=== PATIENT | female | born 1950 | race Caucasian/White ===

== ENCOUNTER → 2016-12-19 | Outpatient (CLI) | payer MEDICARE ==
--- NOTE | 2016-12-19 16:17 | REP ---
Clinical: Nonspecific left renal density. Comparison: 12/24/2015. Technique: Axial contrast enhanced images from the lung bases to the pubic symphysis using oral and 100 ml Isovue 370 intravenous contrast material in the corticomedullary phase of renal enhancement along with precontrast, arterial phase, and delayed phase images of the abdomen. Coronal and sagittal re-formations obtained. Findings: The right kidney demonstrates chronic atrophy with evidence for enhancement suggesting some element of renal function, and no evidence for cyst, nephrolithiasis, hydroureteronephrosis or mass lesion. The left kidney is normal in all phases of enhancement and includes 5 mm upper pole simple cyst without hydroureternephrosis, nephrolithiasis, or renal mass lesion. Liver, spleen, pancreas, gallbladder, and bilateral adrenal glands are normal. The enteric system is without obstruction or acute inflammatory process. Sigmoid diverticula noted without acute diverticulitis. Pelvis demonstrates normal bladder and age-appropriate uterus/adnexa uterine fibroid suggested. Calcifications in the pelvis compatible with phleboliths. No ascites. No free air. No intraperitoneal or retroperitoneal adenopathy. Atherosclerotic changes of the aorta and vasculature without aneurysm or dissection. Musculoskeletal structures without focal osseous abnormality. Lung bases are clear. Large gastric hiatal hernia again noted. Impression: 1. Atrophic right kidney with essentially normal left kidney demonstrating 5 mm simple upper pole cyst. 2. Sigmoid diverticula without acute diverticulitis. 3. Large gastric hiatal hernia. Signed by Judd Hernandez MD 12/19/2016 04:09 P
== END ==
LOC: M RAD 14:13
PROVIDERS: ATTEND Family Medicine
DX: N26.1 Atrophy of kidney (terminal) (principal); N28.1 Cyst of kidney, acquired

== ENCOUNTER → 2018-05-06 | Outpatient (REF) | payer MEDICARE ==
[2018-05-06 18:38] LABS: BASO # 0.1 10^3/uL (0.0-0.2); BASO % 1.1 % (0.0-1.0); EOS # 0.1 10^3/uL (0.0-0.50); EOS % 1.4 % (0.0-3.0); HEMATOCRIT 44.7 % (36.0-47.0); HEMOGLOBIN 14.6 g/dl (12.0-15.5); IMMATURE GRANULOCYTE % 0.3 % (0-3.0); LYMPH # 1.7 10^3/uL (1.5-4.5); LYMPH % 27.2 % (24.0-44.0); MEAN CORPUSCULAR HEMOGLOBIN 29.4 pg (27.0-33.0); MEAN CORPUSCULAR HGB CONC 32.7 g/dl (32.0-36.5); MEAN CORPUSCULAR VOLUME 89.9 fl (80.0-96.0); MONO # 0.5 10^3/uL (0.0-0.8); MONO % 7.5 % (0.0-5.0); NEUTROPHILS # 3.9 10^3/uL (1.8-7.7); NEUTROPHILS % 62.5 % (36.0-66.0); PLATELET COUNT, AUTOMATED 184 10^3/uL (150-450); RED BLOOD COUNT 4.97 10^6/uL (4.00-5.40); RED CELL DISTRIBUTION WIDTH 13.8 % (11.5-14.5); WHITE BLOOD COUNT 6.2 10^3/uL (4.0-10.0)
[2018-05-06 18:54] LABS: ANION GAP 8 MEQ/L (8-16); BLOOD UREA NITROGEN 13 MG/DL (7-18); CALCIUM LEVEL 9.4 MG/DL (8.8-10.2); CARBON DIOXIDE LEVEL 24 MEQ/L (21-32); CHLORIDE LEVEL 109 MEQ/L (98-107); CPK CREATINE PHOSPHOKINASE 93 U/L (26-192); CREATININE FOR GFR 0.85 MG/DL (0.55-1.30); GLOMERULAR FILTRATION RATE > 60.0 (>45); GLUCOSE, FASTING 100 MG/DL (70-100); POTASSIUM SERUM 4.3 MEQ/L (3.5-5.1); SODIUM LEVEL 141 MEQ/L (136-145)
== END ==
LOC: M LAB REF 16:59
DX: K92.1 Melena (principal); M60.9 Myositis, unspecified; I10 Essential (primary) hypertension
CPT/HCPCS: 82550

== ENCOUNTER → 2020-08-30 | Outpatient (CLI) | payer SELFPAY | LOC: M LABSMTC 13:57 | PROVIDERS: ATTEND Pediatrics | DX: Z20.822 Contact with and (suspected) exposure to COVID-19 (principal) ==

== ENCOUNTER → 2021-03-04 | Outpatient (CLI) | payer MEDICARE ==
[~2021-03-04] MED LIST: COQ150CH PO; CVS1CAP2 PO; D31000TA2 PO; FERR325T81 PO; LISI20TA33 PO; OMEP-218 PO; VITMTA PO
== END ==
LOC: M LABSMTC 10:49
PROVIDERS: ATTEND Anesthesiology
DX: Z01.812 Encounter for preprocedural laboratory examination (principal)

== ENCOUNTER → 2021-06-03 | Outpatient (CLI) | payer MEDICARE | LOC: M LABSMTC 09:19 | PROVIDERS: ATTEND Anesthesiology | DX: Z01.812 Encounter for preprocedural laboratory examination (principal); Z20.822 Contact with and (suspected) exposure to COVID-19 ==

== ENCOUNTER 2021-06-08 06:42 | Day surgery (SDC) | payer MEDICARE ==
[~2021-06-08] VITALS: Ht 162.6 cm; Wt 105.7 kg
[~2021-06-08 06:42] MED LIST changes: +NS 1,000 ML IV ONE
--- OUTSIDE RECORDS SUMMARY | 2021-06-08 06:47 | CCD ---
Author Author Mayuri Metzger DO Organization Mayuri Metzger DO Address [address] [address] [place], [place] [id number] Care Team Providers Care Director Communications Name Role Phone Domenica BRAUN MA, Moe Mcdowell Unavailable Mayuri Metzger DO Unavailable Mayuri Metzger DO PCP ENCOUNTERS Encounter Performer Loca tion Date Esophageal hiatal hernia [SNOMED-CT: 62913553] Dr. Mayuri Metzger DO 05-25-2021 Leiomyoma [SNOMED-CT: 523506825150838] Dr. Mayuri Metzger DO 05-25-2021 Other hyperlipidemia [ICD10: E78.49] Dr. Mayuri Metzger DO 11-09-2020 Feces: polyps present [SNOMED-CT: 580116850] Dr. Mayuri Metzger DO 10-04-2020 Other hyperlipidemia [ICD10: E78.49] Dr. Mayuri Metzger DO 10-04-2020 UNSPECIFIED ESSENTIAL HYPERTENSION [SNOMED-CT: 9924535 0] N/A N/A 10-04-2020 REFLUX ESOPHAGITIS [SNOMED-CT: 71225011] Dr. Mayuri Metzger DO 10-04-2020 Malaise and fatigue [SNOMED-CT: 505843759] Dr. Mayuri Metzger DO 10-04-2020 Breast screening, unspecified [ICD10: Z12.39] Dr. Mayuri Metzger DO 10-04-2020 Upper respiratory infection [SNOMED-CT: 99495839] Dr. Mayuri Metzger, DO 08-27-2020 Viral illness [SNOMED-CT: 22711471] Dr. Mayuri Metzger, DO 08-27-2020 Other hyperlipidemia [ICD10: E78.49] Dr. Mayuri Metzger, DO 04-30-2020 Morbid obesity [SNOMED-CT: 262212906] Dr. Mayuri Metzger, DO 04-30-2020 REFLUX ESOPHAGITIS [SNOMED-CT: 87186429] Dr. Mayuri Metzger, DO 10-03-2019 Other hyperlipidemia [ICD10: E78.49] Dr. Mayuri Metzger, DO 10-03-2019 Hyperglycemia [SNOMED-CT: 73246514] Dr. Mayuri Metzger, DO 10-03-2019 Breast screening, unspecified [ICD10: Z12.39] Dr. Mayuri Metzger, DO 10-03-2019 UNSPECIFIED ESSENTIAL HYPERTENSION [SNOMED-CT: 2459849 0] N/A N/A 09-25-2018 REFLUX ESOPHAGITIS [SNOMED-CT: 58860049] Dr. Mayuri Metzger, DO 09-25-2018 Myositis [SNOMED-CT: 13208301] Dr. Parth Metzger, DO 09-25-2018 Other specified vaccination [ICD10: Z23] Moe Metzger, DO 09-25-2018 Hematochezia [SNOMED-CT: 527999495] Dr. Mayuri Metzger, DO 05-06-2018 Myositis [SNOMED-CT: 61211660] Dr. Parth Metzger, DO 05-06-2018 Exogenous hyperlipidemia [SNOMED-CT: 989289349] Dr. Mayuri Metzger, DO 05-06-2018 UNSPECIFIED ESSENTIAL HYPERTENSION [SNOMED-CT: 1510586 0] N/A N/A 05-06-2018 Acute bronchitis [SNOMED-CT: 40459792] Dr. Mayuri Metzger, DO 10-31-2017 Other conjunctivitis [ICD10: H10.89] Dr. Mayuri Metzger, DO 10-31-2017 Anemia [SNOMED-CT: 643999616] Moe Metzger, DO 08-22-2017 Exogenous hyperlipidemia [SNOMED-CT: 031611922] Dr. Mayuri Metzger, DO 08-22-2017 UNSPECIFIED ESSENTIAL HYPERTENSION [SNOMED-CT: 3472196 0] N/A N/A 08-22-2017 Other specified vaccination [ICD10: Z23] Moe Metzger, DO 08-22-2017 Near syncope [SNOMED-CT: 290656062] Dr. Mayuri Metzger, DO 01-03-2017 Nausea [SNOMED-CT: 909122693] Dr. Elyse Metzger, DO 01-03-2017 Asthmatic bronchitis [SNOMED-CT: 308697466] Dr. Mayuri Metzger, DO 12-06-2016 Cough [SNOMED-CT: 61843875] Dr. Chad Metzger, DO 12-06-2016 Viral bronchitis [SNOMED-CT: 81127871] Dr. Mayuri Metzger, DO 12-06-2016 Unilateral renal atrophy [SNOMED-CT: 097030629] Dr. Mayuri Metzger, DO 07-21-2016 Exogenous hyperlipidemia [SNOMED-CT: 077908241] Dr. Mayuri Metzger, DO 07-21-2016 Tick bite [SNOMED-CT: 37153121] Dr. Mayuri Metzger, DO 05-29-2016 Acute dermatitis [SNOMED-CT: 60804867] Dr. Mayuri Metzger, DO 05-29-2016 Abdominal bloating [SNOMED-CT: 339976551] Dr. Mayuri Metzger, DO 12-29-2015 Abdominal pain [SNOMED-CT: 12517535] Dr. Mayuri Metzger, DO 12-29-2015 Atrophy of kidney [SNOMED-CT: 724464574] Dr. Mayuri Metzger, DO 12-29-2015 Abdominal bloating [SNOMED-CT: 108407228] Dr. Mayuri Metzger, DO 12-17-2015 Abdominal pain [SNOMED-CT: 73447796] Dr. Mayuri Metzger, DO 12-17-2015 UNSPECIFIED ESSENTIAL HYPERTENSION [SNOMED-CT: 3746079 0] N/A N/A 07-21-2015 REFLUX ESOPHAGITIS [SNOMED-CT: 77074644] Dr. Mayuri Metzger, DO 07-21-2015 Exogenous hyperlipidemia [SNOMED-CT: 711682430] Dr. Mayuri Metzger, DO 07-21-2015 Erythema chronica migrans [SNOMED-CT: 65910852] Moe Metzger, DO 02-03-2015 ROUTINE GENERAL MEDICAL EXAMINATION AT A HEALTH CARE FACILITY [SNOMED-CT: 643974776] Moe Metzger, DO 06-15-2014 NEED FOR PROPHYLACTIC VACCINATION AND IN OCULATION AGAINST INFLUENZA [SNOMED-CT: 885039933] Moe Metzger, DO 06-15-2014 ROUTINE GENERAL MEDICAL EXAMINATION AT A HEALTH CARE FACILITY [SNOMED-CT: 537814024] Moe Metzger, DO 03-17-2013 UNSPECIFIED ESSENTIAL HYPERTENSION [SNOMED-CT: 9214048 0] N/A N/A 01-15-2012 FAMILY HISTORY OF MALIGNANT NEOPLASM OF OTHER [SNOMED-CT: 652102449] N/A N/A 01-15-2012 ROUTINE GENERAL MEDICAL EXAMINATION AT A HEALTH CARE FACILITY [SNOMED-CT: 957836249] Moe Metzger, DO 01-15-2012 UNSPECIFIED ESSENTIAL HYPERTENSION [SNOMED-CT: 2788975 0] N/A N/A 01-27-2009 SYMPTOMATIC MENOPAUSAL OR FEMALE CLIMACT REGINO STATE [SNOMED-CT: 720929257] N/A N/A 01-27-2009 FAMILY HISTORY OF MALIGNANT NEOPLASM OF OTHER [SNOMED-CT: 683346825] N/A N/A 01-27-2009 ALLERGIES AND ADVERSE REACTIONS Substance Reaction Sever ity Status No Known Drug Allergies (RxNorm: Unknown) -- -- Active FUNCTIONAL STATUS There is no cognitive and functional status saved for this patient. IMMUNIZATIONS Vaccine Date Status FLUAD Quadrivalent (205) 06/07/2020 1 0:08:37 AM Completed Shingrix (187) 10/21/2019 11:56:22 AM Completed Fluarix (140) 10/21/2019 11:55:58 AM Completed Flucelvax Quadrivalent (171) 09/25/19 19 10:14:59 AM Completed Flucelvax, quadrivalent, preservative free (171) 08/22/2017 12:15:46 PM Completed Zoster Live (121) 07/19/2016 2:03:51 PM Completed Fluzone (141) 05/16/2016 12:29:36 PM Completed Fluvirin (141) 06/15/2014 9:02:12 AM Completed MEDICAL EQUIPMENT Patient has no history of implanted devices. MEDICATIONS Medication Generic Name Instructions Dosage Start Date Status omeprazole 20 mg oral delayed release ca psule, [RxNorm: 372931] omeprazole one po daily prn gerd 90 10/04/2020 Active lisinopril 20 mg oral tablet, [RxNorm: 854391] lisinopril one po daily 90 10/05/19 Active ASA 81mg daily Unknown Unknown 11/11/2010 Active INSURANCE PROVIDERS Payer Name Policy Type P olicy ID Covered Green Party ID Policy [employer] [facility] [id number] EVELYNE PAULA ASSESSMENTS # Esophageal hiatal hernia (K44.9):atrophied right kidneys# Leiomyoma (D21.9): PROBLEMS Problem Problem Status D ate Started Date Resolved Date Inactivated UNSPECIFIED ESSENTIAL HYPERTENSION [SNOMED-CT: 6364151 0] Active 01-22-2009 NA NA SYMPTOMATIC MENOPAUSAL OR FEMALE CLIMACT REGINO STATE [SNOMED-CT: 683458405] Active 01-22-2009 NA NA FAMILY HISTORY OF MALIGNANT NEOPLASM OF OTHER [SNOMED-CT: 524465706] Active 01-22-2009 NA NA Exogenous hyperlipidemia [SNOMED-CT: 296884944] Active 07-21-2015 NA NA Esophageal hiatal hernia [SNOMED-CT: 22561308] Active 05-25-2021 NA NA Leiomyoma [SNOMED-CT: 767908905032747] Active 05-25-2021 NA NA Acute bronchitis [SNOMED-CT: 47055190] Active 10-31-2017 NA NA Other conjunctivitis [ICD10: H10.89] Activ e 10-31-2017 NA NA Unilateral renal atrophy [SNOMED-CT: 099482120] Active 07-21-2016 NA NA Other hyperlipidemia [ICD10: E78.49] Activ e 10-03-2019 NA NA Hyperglycemia [SNOMED-CT: 76686697] Active 10-03-2019 NA NA Breast screening, unspecified [ICD10: Z12.39] Active 10-03-2019 NA NA Near syncope [SNOMED-CT: 732890947] Active 01-03-2017 NA NA Nausea [SNOMED-CT: 682404387] Active 01-03-2017 NA NA Asthmatic bronchitis [SNOMED-CT: 760781815] Active 12-06-2016 NA NA Cough [SNOMED-CT: 35479872] Active 12-06-2016 NA NA Viral bronchitis [SNOMED-CT: 29160737] Active 12-06-2016 NA NA Anemia [SNOMED-CT: 645566574] Active 01-08-2017 NA NA Upper respiratory infection [SNOMED-CT: 56846321] Active 08-27-2020 NA NA Viral illness [SNOMED-CT: 10040677] Active 08-27-2020 NA NA ROUTINE GENERAL MEDICAL EXAMINATION AT A HEALTH CARE FACILITY [SNOMED-CT: 139131727] Active 01-15-2012 NA NA Atrophy of kidney [SNOMED-CT: 317104058] Active 12-29-2015 NA NA Hematochezia [SNOMED-CT: 188274970] Active 05-06-2018 NA NA Myositis [SNOMED-CT: 80852777] Active 05-06-2018 NA NA Erythema chronica migrans [SNOMED-CT: 05028670] Active 02-03-2015 NA NA Other specified vaccination [ICD10: Z23] Active 08-22-2017 NA NA NEED FOR PROPHYLACTIC VACCINATION AND IN OCULATION AGAINST INFLUENZA [SNOMED-CT: 455638359] Active 06-15-2014 NA NA Abdominal bloating [SNOMED-CT: 294673220] Active 12-17-2015 NA NA Abdominal pain [SNOMED-CT: 63136299] Activ e 12-17-2015 NA NA REFLUX ESOPHAGITIS [SNOMED-CT: 64236972] Active 03-17-2013 NA NA Tick bite [SNOMED-CT: 21773379] Active 05-29-2016 NA NA Acute dermatitis [SNOMED-CT: 20545424] Active 05-29-2016 NA NA Feces: polyps present [SNOMED-CT: 572247652] Active 10-04-2020 NA NA Malaise and fatigue [SNOMED-CT: 168666513] Active 10-04-2020 NA NA Morbid obesity [SNOMED-CT: 143054675] Active 04-30-2020 NA NA PROCEDURES Procedure Date CPT Code Procedure 05/25/2021 12:06:31 87809 Telephone evaluation and management service by a physician or other qualified health resident caregiver who may report evaluation and management services provided to an established patient, parent, or guardian not originating from a related E/M service provided within the previous 7 days nor leading to an E/M service or procedure within the next 24 hours or soonest available appointment; 5-10 minutes of medical discussion 11/09/2020 12:23:28 93616 Telephone evaluation and management service by a physician or other qualified health resident caregiver who may report evaluation and management services provided to an established patient, parent, or guardian not originating from a related E/M service provided within the previous 7 days nor leading to an E/M service or procedure within the next 24 hours or soonest available appointment; 5-10 minutes of medical discussion 10/04/2020 09:31:39 G0439 ANNUAL WELLNESS VISIT, SUBSEQUENT 10/04/2020 09:31:39 G8427 Eligible clinician attests to documenting in the medical record they obtained, updated, or reviewed the patient's current medications 10/04/2020 09:31:39 1036F Current tobacco non-user (CAD, CAP, COPD, PV) (DM) (IBD) 10/04/2020 09:31:39 3017F Colorectal cancer screening results documented and reviewed (PV) 10/04/2020 09:31:39 1123F Advance Care Planning discussed and documented advance care plan or surrogate decision maker documented in the medical record (DEM) (EPIFANIO, Pall Cr) 08/27/2020 09:26:12 44350 Telephone evaluation and management service by a physician or other qualified health resident caregiver who may report evaluation and management services provided to an established patient, parent, or guardian not originating from a related E/M service provided within the previous 7 days nor leading to an E/M service or procedure within the next 24 hours or soonest available appointment; 21-30 minutes of medical discussion 05/24/2020 09:26:56 3014F Screening mammography results documented and reviewed (PV) 04/30/2020 09:34:59 05898 Office or other outpatient visit for the evaluation and management of an established patient, which requires at least 2 of these 3 panchal components: An expanded problem focused history; An expanded problem focused examination; Medical decision making of low complexity. Counseling and coordination of care with other providers or agencies are provided consistent with the nature of the problem(s) and the patient's and/or family's needs. Usually, the presenting problem(s) are of low to moderate severity. Physicians typically spend 15 minutes xznj-jf-sfvh with the patient and/or family. 10/03/2019 09:01:54 G0439 ANNUAL WELLNESS VISIT, SUBSEQUENT 10/03/2019 09:01:54 76147 Hemoglobin; glycosylated (A1C) by device cleared by FDA for home use 10/03/2019 09:01:54 3017F Colorectal cancer screening results documented and reviewed (PV) 10/03/2019 09:01:54 G8427 Eligible clinician attests to documenting in the medical record they obtained, updated, or reviewed the patient's current medications 10/03/2019 09:01:54 1036F Current tobacco non-user (CAD, CAP, COPD, PV) (DM) (IBD) 10/03/2019 09:01:54 1123F Advance Care Planning discussed and documented advance care plan or surrogate decision maker documented in the medical record (DEM) (EPIFANIO, Pall Cr) 09/25/2018 09:30:24 G0439 ANNUAL WELLNESS VISIT, SUBSEQUENT 09/25/2018 09:30:24 G8427 Eligible clinician attests to documenting in the medical record they obtained, updated, or reviewed the patient's current medications 09/25/2018 09:30:24 1036F Current tobacco non-user (CAD, CAP, COPD, PV) (DM) (IBD) 09/25/2018 09:30:24 3017F Colorectal cancer screening results documented and reviewed (PV) 09/25/2018 09:30:24 G0008 ADMINISTRATION OF FLU VACCINE (V04.81) 09/25/2018 09:30:24 63648 Influenza virus vaccine, quadrivalent (IIV4), split virus, 0.5 mL dosage, for intramuscular use 09/25/2018 09:30:24 1123F Advance Care Planning discussed and documented advance care plan or surrogate decision maker documented in the medical record (DEM) (EPIFANIO, Pall Cr) 05/06/2018 10:12:56 66727 Office or other outpatient visit for the evaluation and management of an established patient, which requires at least 2 of these 3 panchal components: An expanded problem focused history; An expanded problem focused examination; Medical decision making of low complexity. Counseling and coordination of care with other providers or agencies are provided consistent with the nature of the problem(s) and the patient's and/or family's needs. Usually, the presenting problem(s) are of low to moderate severity. Physicians typically spend 15 minutes jvmh-wn-viem with the patient and/or family. 05/06/2018 10:12:56 1036F Current tobacco non-user (CAD, CAP, COPD, PV) (DM) (IBD) 10/31/2017 11:26:07 83403 Office or other outpatient visit for the evaluation and management of an established patient, which requires at least 2 of these 3 panchal components: An expanded problem focused history; An expanded problem focused examination; Medical decision making of low complexity. Counseling and coordination of care with other providers or agencies are provided consistent with the nature of the problem(s) and the patient's and/or family's needs. Usually, the presenting problem(s) are of low to moderate severity. Physicians typically spend 15 minutes gvsf-qg-fgnw with the patient and/or family. 10/31/2017 11:26:07 G8427 Eligible clinician attests to documenting in the medical record they obtained, updated, or reviewed the patient's current medications 10/31/2017 11:26:07 1036F Current tobacco non-user (CAD, CAP, COPD, PV) (DM) (IBD) 08/22/2017 11:22:11 G0439 ANNUAL WELLNESS VISIT, SUBSEQUENT 08/22/2017 11:22:11 1036F Current tobacco non-user (CAD, CAP, COPD, PV) (DM) (IBD) 08/22/2017 11:22:11 3017F Colorectal cancer screening results documented and reviewed (PV) 08/22/2017 11:22:11 G8427 Eligible clinician attests to documenting in the medical record they obtained, updated, or reviewed the patient's current medications 08/22/2017 11:22:11 3014F Screening mammography results documented and reviewed (PV) 08/22/2017 11:22:11 1123F Advance Care Planning discussed and documented advance care plan or surrogate decision maker documented in the medical record (DEM) (EPIFANIO, Cecilia Cr) 08/22/2017 11:22:11 G0008 ADMINISTRATION OF FLU VACCINE (V04.81) 08/22/2017 11:22:11 08878 Influenza virus vaccine, trivalent (ccIIV3), derived from cell cultures, subunit, preservative and antibiotic free, 0.5 mL dosage, for intramuscular use 01/03/2017 15:06:20 17627 Office or other outpatient visit for the evaluation and management of an established patient, which requires at least 2 of these 3 panchal components: An expanded problem focused history; An expanded problem focused examination; Medical decision making of low complexity. Counseling and coordination of care with other providers or agencies are provided consistent with the nature of the problem(s) and the patient's and/or family's needs. Usually, the presenting problem(s) are of low to moderate severity. Physicians typically spend 15 minutes wxpj-rz-lpgm with the patient and/or family. 12/06/2016 14:29:38 49293 Office or other outpatient visit for the evaluation and management of an established patient, which requires at least 2 of these 3 panchal components: An expanded problem focused history; An expanded problem focused examination; Medical decision making of low complexity. Counseling and coordination of care with other providers or agencies are provided consistent with the nature of the problem(s) and the patient's and/or family's needs. Usually, the presenting problem(s) are of low to moderate severity. Physicians typically spend 15 minutes nagk-qk-pjuf with the patient and/or family. 07/21/2016 11:55:26 97032 Office or other outpatient visit for the evaluation and management of an established patient, which requires at least 2 of these 3 panchal components: An expanded problem focused history; An expanded problem focused examination; Medical decision making of low complexity. Counseling and coordination of care with other providers or agencies are provided consistent with the nature of the problem(s) and the patient's and/or family's needs. Usually, the presenting problem(s) are of low to moderate severity. Physicians typically spend 15 minutes hswx-vh-lxts with the patient and/or family. 05/29/2016 14:02:10 54768 Office or other outpatient visit for the evaluation and management of an established patient, which requires at least 2 of these 3 panchal components: An expanded problem focused history; An expanded problem focused examination; Medical decision making of low complexity. Counseling and coordination of care with other providers or agencies are provided consistent with the nature of the problem(s) and the patient's and/or family's needs. Usually, the presenting problem(s) are of low to moderate severity. Physicians typically spend 15 minutes hmmd-yl-xeqf with the patient and/or family. 12/29/2015 08:26:17 29943 Office or other outpatient visit for the evaluation and management of an established patient, which requires at least 2 of these 3 panchal components: A detailed history; A detailed examination; Medical decision making of moderate complexity. Counseling and/or coordination of care with other providers or agencies are provided consistent with the nature of the problem(s) and the patient's and/or family's n eeds. Usually, the presenting problem(s) are of moderate to high severity. Physicians typically spend 25 minutes fqqf-jg-qpwc with the patient and/or family. 12/29/2015 08:26:17 88608 Collection of venous blood by venipuncture 12/17/2015 11:48:27 29478 Office or other outpatient visit for the evaluation and management of an established patient, which requires at least 2 of these 3 panchal components: An expanded problem focused history; An expanded problem focused examination; Medical decision making of low complexity. Counseling and coordination of care with other providers or agencies are provided consistent with the nature of the problem(s) and the patient's and/or family's needs. Usually, the presenting problem(s) are of low to moderate severity. Physicians typically spend 15 minutes uiol-jo-crxz with the patient and/or family. 07/21/2015 08:27:41 07470 Collection of venous blood by venipuncture 07/21/2015 08:27:41 G0402 [facility] TO MEDICARE " ANNUAL WELLNESS VISIT" 02/03/2015 13:42:00 25282 Office or other outpatient visit for the evaluation and management of an established patient, which requires at least 2 of these 3 panchal components: An expanded problem focused history; An expanded problem focused examination; Medical decision making of low complexity. Counseling and coordination of care with other providers or agencies are provided consistent with the nature of the problem(s) and the patient's and/or family's needs. Usually, the presenting problem(s) are of low to moderate severity. Physicians typically spend 15 minutes rvcy-ro-vyhg with the patient and/or family. 06/15/2014 00:00:00 29687 INFLUENZA VACCINATION 06/15/2014 00:00:00 57061 Periodic comprehensive preventive medicine reevaluation and management of an individual including an age and gender appropriate history, examination, counseling/anticipatory guidance/risk factor reduction interventions, and the ordering of laboratory/diagnostic procedures, established patient; 40-64 years 06/15/2014 00:00:00 Q2037 FLUVRIN 03/17/2013 08:42:44 99089 Periodic comprehensive preventive medicine reevaluation and management of an individual including an age and gender appropriate history, examination, counseling/anticipatory guidance/risk factor reduction interventions, and the ordering of laboratory/diagnostic procedures, established patient; 40-64 years 03/17/2013 08:42:44 97796 Collection of venous blood by venipuncture 01/15/2012 09:50:37 53830 Periodic comprehensive preventive medicine reevaluation and management of an individual including an age and gender appropriate history, examination, counseling/anticipatory guidance/risk factor reduction interventions, and the ordering of laboratory/diagnostic procedures, established patient; 40-64 years 11/11/2010 11:02:42 85966 Blood, occult, by peroxidase activity (eg, guaiac), qualitative; feces, consecutive collected specimens with single determination, for colorectal neoplasm screening (ie, patient was provided 3 cards or single triple card for consecutive collection) 11/11/2010 11:02:42 35384 Periodic comprehensive preventive medicine reevaluation and management of an individual including an age and gender appropriate history, examination, counseling/anticipatory guidance/risk factor reduction interventions, and the ordering of laboratory/diagnostic procedures, established patient; 40-64 years 10/08/2009 00:00:00 01260 Blood, occult, by peroxidase activity (eg, guaiac), qualitative; feces, consecutive collected specimens with single determination, for colorectal neoplasm screening (ie, patient was provided 3 cards or single triple card for consecutive collection) 10/08/2009 00:00:00 60831 Periodic comprehensive preventive medicine reevaluation and management of an individual including an age and gender appropriate history, examination, counseling/anticipatory guidance/risk factor reduction interventions, and the ordering of laboratory/diagnostic procedures, established patient; 40-64 years 01/27/2009 00:00:00 80268 Office or other outpatient visit for the evaluation and management of an established patient, which requires at least 2 of these 3 panchal components: A detailed history; A detailed examination; Medical decision making of moderate complexity. Counseling and/or coordination of care with other providers or agencies are provided consistent with the nature of the problem(s) and the patient's and/or family's n eeds. Usually, the presenting problem(s) are of moderate to high severity. Physicians typically spend 25 minutes trpi-rd-twot with the patient and/or family. REASON FOR REFERRAL No Reason for Referral information available. RESULTS Result Type Result Value Relevant Reference Range Interpretation Date TROPONIN-HIGH SENSITIVITY 7.2 ng/L 0-60.4 No Flag 05/04/2021 10:56:00 LIPASE 150 U/L 73-393 No Flag 05/04/2021 07:30:00 GLOMERULAR FILTRATION RAT 49 mL/min -- No Flag 05/04/2021 07:21:00 GLUCOSE 143 mg/dL 74-106 H 05/04/2021 07:21:00 BLOOD UREA NITROGEN 13 mg/dL 7-18 No Flag 05/04/2021 07:21:00 CREATININE 1.09 mg/dL 0. 6-1.0 H 05/04/2021 07:21:00 SODIUM 142 mmol/L 136-145 No Flag 05/04/2021 07:21:00 POTASSIUM 4.3 mmol/L 3.5 -5.1 No Flag 05/04/2021 07:21:00 CHLORIDE 105 mmol/L 98-1 07 No Flag 05/04/2021 07:21:00 CO2 28 mmol/L 21-32 No Flag 05/04/2021 07:21:00 CALCIUM 9.0 mg/dL 8.5-10 .1 No Flag 05/04/2021 07:21:00 ANION GAP 9.0 mmol/L 5-12 No [facility] 05/04/2021 07:21:00 AST 16 U/L 15-37 No [facility] 05/04/2021 07:21:00 ALT 29 U/L 12-78 No [facility] 05/04/2021 07:21:00 ALKALINE PHOSPHATASE 78 U/L 46-116 No [facility] 05/04/2021 07:21:00 TOTAL BILIRUBIN 0.5 mg/dL 0.2-1.0 No [facility] 05/04/2021 07:21:00 TOTAL PROTEIN 7.1 g/dl 6 .4-8.2 No [facility] 05/04/2021 07:21:00 ALBUMIN 3.5 gm/dL 3.4-5.0 No [facility] [facility] 05/04/2021 07:21:00 TROPONIN-HIGH SENSITIVITY 6.3 ng/L 0-60.4 No [facility] 05/04/2021 07:21:00 MAGNESIUM 1.9 mg/dL 1.8- 2.4 No [facility] 05/04/2021 07:21:00 PARTIAL THROMBOPLASTIN TI 23.9 SECONDS 21.2- 27.3 No [facility] 05/04/2021 07:13:00 PROTHROMBIN TIME (PATIENT 10.1 SECONDS 9.1- 11.6 No [facility] 05/04/2021 07:13:00 INR 0.97 0.87-1.06 No [facility] 05/04/2021 07:13:00 WHITE BLOOD COUNT 6.9 K/mm3 4.0-10.0 No [facility] 05/04/2021 07:03:00 RED BLOOD COUNT 5.12 M/mm3 4.00-5.50 No [facility] 05/04/2021 07:03:00 HEMOGLOBIN 15.2 gm/dL 12 .0-16.0 No [facility] 05/04/2021 07:03:00 HEMATOCRIT 44.8 % 36.0-4 8.8 No [facility] 05/04/2021 07:03:00 MEAN CELL VOLUME 87.5 fl 80-96 No [facility] 05/04/2021 07:03:00 MEAN CORPUSCULAR HEMOGLOB 29.7 pg 27.0-31.0 No [facility] 05/04/2021 07:03:00 MEAN CORPUSCULAR HGB CONC 33.9 g/dl 32.0- 36.0 No [facility] 05/04/2021 07:03:00 RED CELL DISTRIBUTION WID 13.6 % 10.0-14.5 No [facility] 05/04/2021 07:03:00 PLATELET COUNT 192 K/mm3 172-450 No [facility] 05/04/2021 07:03:00 MEAN PLATELET VOLUME 12.7 fl 9.0-13.0 No [facility] 05/04/2021 07:03:00 GRAN % 66.3 % 50-80.0 No [facility] 05/04/2021 07:03:00 IG% 0.3 % 0.0-0.2 H 05/04/2021 07:03:00 LYMPH % 24.5 % 25.0-50.0 L 05/04/2021 07:03:00 MONO % 7.0 % 2.0-10.0 No [facility] 05/04/2021 07:03:00 EOS % 1.2 % 0-5.0 No [facility] 05/04/2021 07:03:00 BASO % 0.7 % 0.0-2.0 No [facility] 05/04/2021 07:03:00 GRAN # 4.6 K/mm3 2.0-8.00 No [facility] 05/04/2021 07:03:00 IG# 0.0 K/mm3 0.0-0.2 No [facility] 05/04/2021 07:03:00 LYMPH # 1.7 K/mm3 1.0-5.0 No [facility] 05/04/2021 07:03:00 MONO # 0.5 K/mm3 0.10-1. 20 No [facility] 05/04/2021 07:03:00 EOS # 0.1 K/mm3 0.0-0.5 No [facility] 05/04/2021 07:03:00 BASO # 0.1 K/mm3 0.0-0.2 No [facility] 05/04/2021 07:03:00 TSH 2.160 uIU/mL 0.360-3 .740 No [facility] 11/02/2020 09:28:00 CHOLESTEROL 229 mg/dL 0- 200 H 11/02/2020 09:03:00 TRIGLYCERIDES 180 mg/dL 0-150 H 11/02/2020 09:03:00 LDL CHOLESTEROL 147 mg/dL 0-100 H 11/02/2020 09:03:00 HDL CHOLESTEROL 46 mg/dL 40-60 No [facility] 11/02/2020 09:03:00 CHOL/HDL RATIO 5.0 0.0- 5.0 No [facility] 11/02/2020 09:03:00 TSH 1.86 uIU/mL 0.36-3.74 No [facility] 04/19/2020 08:34:00 CHOLESTEROL 231 mg/dL 0- 200 H 04/19/2020 08:34:00 TRIGLYCERIDES 140 mg/dL 0-150 No [facility] 04/19/2020 08:34:00 LDL CHOLESTEROL 159 mg/dL 0-100 H 04/19/2020 08:34:00 HDL CHOLESTEROL 44 mg/dL 40-60 No [facility] 04/19/2020 08:34:00 CHOL/HDL RATIO 5.3 0.0- 5.0 H 04/19/2020 08:34:00 GLOMERULAR FILTRATION RAT 55 mL/min -- No [facility] 04/19/2020 08:34:00 GLUCOSE 105 mg/dL 74-106 No [facility] 04/19/2020 08:34:00 BLOOD UREA NITROGEN 24 mg/dL 7-18 H 04/19/2020 08:34:00 CREATININE 1.0 mg/dL 0.6 -1.0 No [facility] 04/19/2020 08:34:00 SODIUM 142 mmol/L 136-145 No [facility] 04/19/2020 08:34:00 POTASSIUM 4.3 mmol/L 3.5 -5.1 No [facility] 04/19/2020 08:34:00 CHLORIDE 106 mmol/L 98-1 07 No [facility] 04/19/2020 08:34:00 CO2 29 mmol/L 21-32 No [facility] 04/19/2020 08:34:00 CALCIUM 8.7 mg/dL 8.5-10 .1 No [facility] 04/19/2020 08:34:00 ANION GAP 7.0 mmol/L 5-12 No [facility] 04/19/2020 08:34:00 AST 18 U/L 15-37 No [facility] 04/19/2020 08:34:00 ALT 24 U/L 12-78 No [facility] 04/19/2020 08:34:00 ALKALINE PHOSPHATASE 79 U/L 46-116 No [facility] 04/19/2020 08:34:00 TOTAL BILIRUBIN 0.6 mg/dL 0.2-1.0 No [facility] 04/19/2020 08:34:00 TOTAL PROTEIN 6.5 g/dl 6 .4-8.2 No [facility] 04/19/2020 08:34:00 ALBUMIN 3.5 gm/dL 3.4-5.0 No [facility] 04/19/2020 08:34:00 WHITE BLOOD COUNT 5.2 K/mm3 4.0-10.0 No [facility] 04/19/2020 08:00:00 RED BLOOD COUNT 4.89 M/mm3 4.00-5.50 No [facility] 04/19/2020 08:00:00 HEMOGLOBIN 14.4 gm/dL 12 .0-16.0 No [facility] 04/19/2020 08:00:00 HEMATOCRIT 43.3 % 36.0-4 8.8 No [facility] 04/19/2020 08:00:00 MEAN CELL VOLUME 88.5 fl 80-96 No [facility] 04/19/2020 08:00:00 MEAN CORPUSCULAR HEMOGLOB 29.4 pg 27.0-31.0 No [facility] 04/19/2020 08:00:00 MEAN CORPUSCULAR HGB CONC 33.3 g/dl 32.0- 36.0 No [facility] 04/19/2020 08:00:00 RED CELL DISTRIBUTION WID 13.6 % 10.0-14.5 No [facility] 04/19/2020 08:00:00 PLATELET COUNT 173 K/mm3 172-450 No [facility] 04/19/2020 08:00:00 MEAN PLATELET VOLUME 12.7 fl 9.0-13.0 No [facility] 04/19/2020 08:00:00 GRAN % 60.3 % 50-80.0 No [facility] 04/19/2020 08:00:00 IG% 0.2 % 0.0-0.2 No [facility] 04/19/2020 08:00:00 LYMPH % 28.9 % 25.0-50.0 No [facility] 04/19/2020 08:00:00 MONO % 7.5 % 2.0-10.0 No [facility] 04/19/2020 08:00:00 EOS % 2.1 % 0-5.0 No [facility] 04/19/2020 08:00:00 BASO % 1.0 % 0.0-2.0 No [facility] 04/19/2020 08:00:00 GRAN # 3.2 K/mm3 2.0-8.00 No [facility] 04/19/2020 08:00:00 IG# 0.0 K/mm3 0.0-0.2 No [facility] 04/19/2020 08:00:00 LYMPH # 1.5 K/mm3 1.0-5.0 No Flag 04/19/2020 08:00:00 MONO # 0.4 K/mm3 0.10-1. 20 No Flag 04/19/2020 08:00:00 EOS # 0.1 K/mm3 0.0-0.5 No Flag 04/19/2020 08:00:00 BASO # 0.1 K/mm3 0.0-0.2 No Flag 04/19/2020 08:00:00 HCV ANTIBODY <0.1 0.0-0 .9 No Flag 10/08/2018 08:16:00 CHOLESTEROL 231 mg/dL 0- 200 H 10/07/2018 08:09:00 TRIGLYCERIDES 192 mg/dL 0-150 H 10/07/2018 08:09:00 LDL CHOLESTEROL 152 mg/dL 0-100 H 10/07/2018 08:09:00 HDL CHOLESTEROL 41 mg/dL 40-60 No Flag 10/07/2018 08:09:00 CHOL/HDL RATIO 5.6 0.0- 5.0 H 10/07/2018 08:09:00 WHITE BLOOD COUNT 5.3 K/mm3 4.0-10.0 No Flag 10/07/2018 07:39:00 RED BLOOD COUNT 4.99 M/mm3 4.00-5.50 No Flag 10/07/2018 07:39:00 HEMOGLOBIN 14.9 gm/dL 12 .0-16.0 No Flag 10/07/2018 07:39:00 HEMATOCRIT 45.1 % 36.0-4 8.8 No Flag 10/07/2018 07:39:00 MEAN CELL VOLUME 90.4 fl 80-96 No Flag 10/07/2018 07:39:00 MEAN CORPUSCULAR HEMOGLOB 29.9 pg 27.0-31.0 No Flag 10/07/2018 07:39:00 MEAN CORPUSCULAR HGB CONC 33.0 g/dl 32.0- 36.0 No Flag 10/07/2018 07:39:00 RED CELL DISTRIBUTION WID 14.0 % 10.0-14.5 No Flag 10/07/2018 07:39:00 PLATELET COUNT 190 K/mm3 172-450 No Flag 10/07/2018 07:39:00 MEAN PLATELET VOLUME 12.5 fl 9.0-13.0 No Flag 10/07/2018 07:39:00 GRAN % 57.6 % 50-80.0 No Flag 10/07/2018 07:39:00 IG% 0.2 % 0.0-0.2 No Flag 10/07/2018 07:39:00 LYMPH % 29.5 % 25.0-50.0 No Flag 10/07/2018 07:39:00 MONO % 9.3 % 2.0-10.0 No Flag 10/07/2018 07:39:00 EOS % 2.1 % 0-5.0 No Flag 10/07/2018 07:39:00 BASO % 1.3 % 0.0-2.0 No Flag 10/07/2018 07:39:00 GRAN # 3.1 K/mm3 2.0-8.00 No Flag 10/07/2018 07:39:00 IG# 0.0 K/mm3 0.0-0.2 No Flag 10/07/2018 07:39:00 LYMPH # 1.6 K/mm3 1.0-5.0 No Flag 10/07/2018 07:39:00 MONO # 0.5 K/mm3 0.10-1. 20 No Flag 10/07/2018 07:39:00 EOS # 0.1 K/mm3 0.0-0.5 No Flag 10/07/2018 07:39:00 BASO # 0.1 K/mm3 0.0-0.2 No Flag 10/07/2018 07:39:00 GLOMERULAR FILTRATION RATE > 60.0 >45 No Flag 05/06/2018 18:54:00 GLUCOSE, FASTING 100 MG/DL 70-100 No Flag 05/06/2018 18:54:00 BLOOD UREA NITROGEN 13 MG/DL 7-18 No Flag 05/06/2018 18:54:00 CREATININE FOR GFR 0.85 MG/DL 0.55-1.30 No Flag 05/06/2018 18:54:00 SODIUM LEVEL 141 MEQ/L 1 36-145 No Flag 05/06/2018 18:54:00 POTASSIUM SERUM 4.3 MEQ/L 3.5-5.1 No Flag 05/06/2018 18:54:00 CHLORIDE LEVEL 109 MEQ/L 98-107 H 05/06/2018 18:54:00 CARBON DIOXIDE LEVEL 24 MEQ/L 21-32 No Flag 05/06/2018 18:54:00 ANION GAP 8 MEQ/L 8-16 No Flag 05/06/2018 18:54:00 CALCIUM LEVEL 9.4 MG/DL 8.8-10.2 No Flag 05/06/2018 18:54:00 CPK CREATINE PHOSPHOKINASE 93 U/L 26-192 No Flag 05/06/2018 18:54:00 WHITE BLOOD COUNT 6.2 10 3/uL 4.0-10.0 No Flag 05/06/2018 18:38:00 RED BLOOD COUNT 4.97 10 6/uL 4.00-5.40 No Flag 05/06/2018 18:38:00 HEMOGLOBIN 14.6 g/dl 12. 0-15.5 No Flag 05/06/2018 18:38:00 HEMATOCRIT 44.7 % 36.0-4 7.0 No Flag 05/06/2018 18:38:00 MEAN CORPUSCULAR VOLUME 89.9 fl 80.0-96.0 No Flag 05/06/2018 18:38:00 MEAN CORPUSCULAR HEMOGLOBIN 29.4 pg 27.0- 33.0 No Flag 05/06/2018 18:38:00 MEAN CORPUSCULAR HGB CONC 32.7 g/dl 32.0- 36.5 No Flag 05/06/2018 18:38:00 RED CELL DISTRIBUTION WIDTH 13.8 % 11.5-14.5 No Flag 05/06/2018 18:38:00 PLATELET COUNT, AUTOMATED 184 10 3/uL 150- 450 No Flag 05/06/2018 18:38:00 NUCLEATED RED BLOOD CELL % 0.0 % 0-0 No Flag 05/06/2018 18:38:00 NEUTROPHILS % 62.5 % 36. 0-66.0 No Flag 05/06/2018 18:38:00 LYMPH % 27.2 % 24.0-44.0 No Flag 05/06/2018 18:38:00 MONO % 7.5 % 0.0-5.0 H 05/06/2018 18:38:00 EOS % 1.4 % 0.0-3.0 No Flag 05/06/2018 18:38:00 BASO % 1.1 % 0.0-1.0 H 05/06/2018 18:38:00 IMMATURE GRANULOCYTE % 0.3 % 0-3.0 No Flag 05/06/2018 18:38:00 NEUTROPHILS # 3.9 10 3/uL 1.8-7.7 No Flag 05/06/2018 18:38:00 LYMPH # 1.7 10 3/uL 1.5- 4.5 No Flag 05/06/2018 18:38:00 MONO # 0.5 10 3/uL 0.0-0 .8 No Flag 05/06/2018 18:38:00 EOS # 0.1 10 3/uL 0.0-0. 50 No Flag 05/06/2018 18:38:00 BASO # 0.1 10 3/uL 0.0-0 .2 No Flag 05/06/2018 18:38:00 IMMATURE GRANULOCYTE # 0.0 10 3/uL 0-0 No Flag 05/06/2018 18:38:00 CHOLESTEROL 168 mg/dL 0- 200 No Flag 08/29/2017 10:24:00 TRIGLYCERIDES 107 mg/dL 0-150 No Flag 08/29/2017 10:24:00 LDL CHOLESTEROL 97 mg/dL 0-100 No Flag 08/29/2017 10:24:00 HDL CHOLESTEROL 50 mg/dL >40 No Flag 08/29/2017 10:24:00 CHOL/HDL RATIO 3.4 0.0- 5.0 No Flag 08/29/2017 10:24:00 TSH 2.17 uIU/mL 0.36-3.7 No Flag 08/29/2017 09:38:00 WHITE BLOOD COUNT 5.5 K/mm3 4.0-10.0 No Flag 08/29/2017 08:21:00 RED BLOOD COUNT 4.91 M/mm3 4.00-5.50 No Flag 08/29/2017 08:21:00 HEMOGLOBIN 14.5 gm/dL 12 .0-16.0 No Flag 08/29/2017 08:21:00 HEMATOCRIT 44.3 % 36.0-4 8.8 No Flag 08/29/2017 08:21:00 MEAN CELL VOLUME 90.2 fl 80-96 No Flag 08/29/2017 08:21:00 MEAN CORPUSCULAR HEMOGLOB 29.5 pg 27.0-31.0 No Flag 08/29/2017 08:21:00 MEAN CORPUSCULAR HGB CONC 32.7 g/dl 32.0- 36.0 No Flag 08/29/2017 08:21:00 RED CELL DISTRIBUTION WID 14.6 % 10.0-14.5 H 08/29/2017 08:21:00 PLATELET COUNT 225 K/mm3 172-450 No Flag 08/29/2017 08:21:00 MEAN PLATELET VOLUME 12.2 fl 9.0-13.0 No Flag 08/29/2017 08:21:00 GRAN % 59.0 % 50-80.0 No Flag 08/29/2017 08:21:00 LYMPH % 29.5 % 25.0-50.0 No Flag 08/29/2017 08:21:00 MONO % 7.7 % 2.0-10.0 No Flag 08/29/2017 08:21:00 EOS % 2.7 % 0-5.0 No Flag 08/29/2017 08:21:00 BASO % 1.1 % 0.0-2.0 No Flag 08/29/2017 08:21:00 GRAN # 3.2 2.0-8.00 No Flag 08/29/2017 08:21:00 LYMPH # 1.6 1.0-5.0 No Flag 08/29/2017 08:21:00 MONO # 0.4 0.10-1.20 No Flag 08/29/2017 08:21:00 EOS # 0.2 0.0-0.5 No Flag 08/29/2017 08:21:00 BASO # 0.1 K/mm3 0.0-0.2 No Flag 08/29/2017 08:21:00 WHITE BLOOD COUNT 6.5 K/mm3 4.0-10.0 No Flag 06/04/2017 09:27:00 RED BLOOD COUNT 4.99 M/mm3 4.00-5.50 No Flag 06/04/2017 09:27:00 HEMOGLOBIN 14.6 gm/dL 12 .0-16.0 No Flag 06/04/2017 09:27:00 HEMATOCRIT 44.2 % 36.0-4 8.8 No Flag 06/04/2017 09:27:00 MEAN CELL VOLUME 88.6 fl 80-96 No Flag 06/04/2017 09:27:00 MEAN CORPUSCULAR HEMOGLOB 29.3 pg 27.0-31.0 No Flag 06/04/2017 09:27:00 MEAN CORPUSCULAR HGB CONC 33.0 g/dl 32.0- 36.0 No Flag 06/04/2017 09:27:00 RED CELL DISTRIBUTION WID 15.1 % 10.0-14.5 H 06/04/2017 09:27:00 PLATELET COUNT 202 K/mm3 172-450 No Flag 06/04/2017 09:27:00 MEAN PLATELET VOLUME 12.6 fl 9.0-13.0 No Flag 06/04/2017 09:27:00 GRAN % 60.6 % 50-80.0 No Flag 06/04/2017 09:27:00 LYMPH % 27.5 % 25.0-50.0 No Flag 06/04/2017 09:27:00 MONO % 9.8 % 2.0-10.0 No Flag 06/04/2017 09:27:00 EOS % 1.5 % 0-5.0 No Flag 06/04/2017 09:27:00 BASO % 0.6 % 0.0-2.0 No Flag 06/04/2017 09:27:00 GRAN # 4.0 2.0-8.00 No Flag 06/04/2017 09:27:00 LYMPH # 1.8 1.0-5.0 No Flag 06/04/2017 09:27:00 MONO # 0.6 0.10-1.20 No Flag 06/04/2017 09:27:00 EOS # 0.1 0.0-0.5 No Flag 06/04/2017 09:27:00 BASO # 0.0 K/mm3 0.0-0.2 No Flag 06/04/2017 09:27:00 IRON 44 ug/dL 50-170 L 03/16/2017 09:32:00 WHITE BLOOD COUNT See notes. K/mm3 4.0-10.0 No Flag 03/16/2017 08:37:00 RED BLOOD COUNT See notes. M/mm3 4.00-5.50 No Flag 03/16/2017 08:37:00 HEMOGLOBIN See notes. gm/dL 12.0-16.0 No Flag 03/16/2017 08:37:00 HEMATOCRIT See notes. % 36.0-48.8 No Flag 03/16/2017 08:37:00 MEAN CELL VOLUME See notes. fl 80-96 No Flag 03/16/2017 08:37:00 MEAN CORPUSCULAR HEMOGLOB See notes. pg 27.0-31.0 No Flag 03/16/2017 08:37:00 MEAN CORPUSCULAR HGB CONC See notes. g/dl 32.0-36.0 No Flag 03/16/2017 08:37:00 RED CELL DISTRIBUTION WID See notes. % 10.0- 14.5 H 03/16/2017 08:37:00 PLATELET COUNT See notes. K/mm3 172-450 No Flag 03/16/2017 08:37:00 MEAN PLATELET VOLUME See notes. fl 9.0-13.0 No Flag 03/16/2017 08:37:00 GRAN % See notes. % 50-8 0.0 No Flag 03/16/2017 08:37:00 LYMPH % See notes. % 25. 0-50.0 No Flag 03/16/2017 08:37:00 MONO % See notes. % 2.0- 10.0 No Flag 03/16/2017 08:37:00 EOS % See notes. % 0-5.0 No Flag 03/16/2017 08:37:00 BASO % See notes. % 0.0- 2.0 No Flag 03/16/2017 08:37:00 GRAN # See notes. 2.0-8 .00 No Flag 03/16/2017 08:37:00 LYMPH # See notes. 1.0- 5.0 No Flag 03/16/2017 08:37:00 MONO # See notes. 0.10- 1.20 No Flag 03/16/2017 08:37:00 EOS # See notes. 0.0-0.5 No Flag 03/16/2017 08:37:00 BASO # See notes. K/mm3 0.0-0.2 No Flag 03/16/2017 08:37:00 WHITE BLOOD COUNT See notes. K/mm3 4.0-10.0 No Flag 03/16/2017 08:37:00 RED BLOOD COUNT See notes. M/mm3 4.00-5.50 No Flag 03/16/2017 08:37:00 HEMOGLOBIN See notes. gm/dL 12.0-16.0 No Flag 03/16/2017 08:37:00 HEMATOCRIT See notes. % 36.0-48.8 No Flag 03/16/2017 08:37:00 MEAN CELL VOLUME See notes. fl 80-96 No Flag 03/16/2017 08:37:00 MEAN CORPUSCULAR HEMOGLOB See notes. pg 27.0-31.0 No Flag 03/16/2017 08:37:00 MEAN CORPUSCULAR HGB CONC See notes. g/dl 32.0-36.0 No Flag 03/16/2017 08:37:00 RED CELL DISTRIBUTION WID See notes. % 10.0- 14.5 H 03/16/2017 08:37:00 PLATELET COUNT See notes. K/mm3 172-450 No Flag 03/16/2017 08:37:00 MEAN PLATELET VOLUME See notes. fl 9.0-13.0 No Flag 03/16/2017 08:37:00 GRAN % See notes. % 50-8 0.0 No Flag 03/16/2017 08:37:00 LYMPH % See notes. % 25. 0-50.0 No Flag 03/16/2017 08:37:00 MONO % See notes. % 2.0- 10.0 No Flag 03/16/2017 08:37:00 EOS % See notes. % 0-5.0 No Flag 03/16/2017 08:37:00 BASO % See notes. % 0.0- 2.0 No Flag 03/16/2017 08:37:00 GRAN # See notes. 2.0-8 .00 No Flag 03/16/2017 08:37:00 LYMPH # See notes. 1.0- 5.0 No Flag 03/16/2017 08:37:00 MONO # See notes. 0.10- 1.20 No Flag 03/16/2017 08:37:00 EOS # See notes. 0.0-0.5 No Flag 03/16/2017 08:37:00 BASO # See notes. K/mm3 0.0-0.2 No Flag 03/16/2017 08:37:00 WHITE BLOOD COUNT 5.6 K/mm3 4.0-10.0 No Flag 03/16/2017 08:37:00 RED BLOOD COUNT 4.87 M/mm3 4.00-5.50 No Flag 03/16/2017 08:37:00 HEMOGLOBIN 13.4 gm/dL 12 .0-16.0 No Flag 03/16/2017 08:37:00 HEMATOCRIT 40.9 % 36.0-4 8.8 No Flag 03/16/2017 08:37:00 MEAN CELL VOLUME 84.0 fl 80-96 No Flag 03/16/2017 08:37:00 MEAN CORPUSCULAR HEMOGLOB 27.5 pg 27.0-31.0 No Flag 03/16/2017 08:37:00 MEAN CORPUSCULAR HGB CONC 32.8 g/dl 32.0- 36.0 No Flag 03/16/2017 08:37:00 RED CELL DISTRIBUTION WID 20.6 % 10.0-14.5 H 03/16/2017 08:37:00 PLATELET COUNT 176 K/mm3 172-450 No Flag 03/16/2017 08:37:00 MEAN PLATELET VOLUME 11.7 fl 9.0-13.0 No Flag 03/16/2017 08:37:00 GRAN % 65.8 % 50-80.0 No Flag 03/16/2017 08:37:00 LYMPH % 24.4 % 25.0-50.0 L 03/16/2017 08:37:00 MONO % 6.6 % 2.0-10.0 No Flag 03/16/2017 08:37:00 EOS % 2.3 % 0-5.0 No Flag 03/16/2017 08:37:00 BASO % 0.9 % 0.0-2.0 No Flag 03/16/2017 08:37:00 GRAN # 3.7 2.0-8.00 No Flag 03/16/2017 08:37:00 LYMPH # 1.4 1.0-5.0 No Flag 03/16/2017 08:37:00 MONO # 0.4 0.10-1.20 No Flag 03/16/2017 08:37:00 EOS # 0.1 0.0-0.5 No Flag 03/16/2017 08:37:00 BASO # 0.1 K/mm3 0.0-0.2 No Flag 03/16/2017 08:37:00 PLATELET ESTIMATE NORMAL NORMAL No Flag 03/16/2017 08:18:00 ANISOCYTOSIS 2+ -- No Flag 03/16/2017 08:18:00 FELICIA INTERPRETATION:U Comment . No Flag 01/09/2017 18:06:00 RETICULOCYTE COUNT 1.7 % 0.6-2.6 No Flag 01/09/2017 08:14:00 RETICULOCYTE COUNT 1.7 % 0.6-2.6 No Flag 01/09/2017 08:14:00 FOLATE (FOLIC ACID), SERU >20.0 ng/mL >3.0 No Flag 01/09/2017 08:14:00 VITAMIN B12 590 pg/mL 21 946 No Flag 01/09/2017 08:14:00 FOLATE (FOLIC ACID), SERU >20.0 ng/mL >3.0 No Flag 01/09/2017 08:14:00 VITAMIN B12 590 pg/mL 21 946 No Flag 01/09/2017 08:14:00 IRON 30 ug/dL 50-170 L 01/08/2017 11:34:00 TIBC 421 ug/dL 250-450 No Flag 01/08/2017 11:34:00 % SATURATION 7 % 20-50 L 01/08/2017 11:34:00 FERRITIN 7 ug/L 8-252 L 01/08/2017 11:34:00 URINE RBC OCC /hpf 0-3 No Flag 01/08/2017 11:04:00 URINE WBC 1-3 /hpf 0-3 No Flag 01/08/2017 11:04:00 URINE EPITHELIAL CELLS 1+ /hpf -- No Flag 01/08/2017 11:04:00 URINE OTHER CRYSTALS NONE SEEN /hpf 0 No Flag 01/08/2017 11:04:00 URINE BACTERIA 1+ NONE SEEN No Flag 01/08/2017 11:04:00 URINE HYALINE CAST RARE /LPF -- No Flag 01/08/2017 11:04:00 URINE MUCUS NONE SEEN N EGATIVE No Flag 01/08/2017 11:04:00 URINE COLOR. YELLOW -- No Flag 01/08/2017 10:36:00 URINE APPEARANCE CLEAR -- No Flag 01/08/2017 10:36:00 SPECIFIC GRAVITY,URINE 1.020 1.002-1.035 No Flag 01/08/2017 10:36:00 URINE LEUKOCYTE ESTERASE TRACE NEGATIVE No Flag 01/08/2017 10:36:00 URINE NITRATE NEGATIVE NEGATIVE No Flag 01/08/2017 10:36:00 PH,URINE 5.0 UNITS 5.0-9 .0 No Flag 01/08/2017 10:36:00 URINE PROTEIN NEGATIVE mg/dL NEGATIVE No Flag 01/08/2017 10:36:00 URINE GLUCOSE (UA) NEGATIVE mg/dL NEGATIVE No Flag 01/08/2017 10:36:00 URINE KETONE NEGATIVE mg/dL NEGATIVE No Flag 01/08/2017 10:36:00 URINE UROBILINOGEN NORMAL MG/DL NORMAL No Flag 01/08/2017 10:36:00 URINE BILIRUBIN NEGATIVE NEGATIVE No Flag 01/08/2017 10:36:00 URINE BLOOD NEGATIVE NE GATIVE No Flag 01/08/2017 10:36:00 URINE COLOR. YELLOW -- No Flag 01/08/2017 10:36:00 URINE APPEARANCE CLEAR -- No Flag 01/08/2017 10:36:00 SPECIFIC GRAVITY,URINE 1.020 1.002-1.035 No Flag 01/08/2017 10:36:00 URINE LEUKOCYTE ESTERASE TRACE NEGATIVE No Flag 01/08/2017 10:36:00 URINE NITRATE NEGATIVE NEGATIVE No Flag 01/08/2017 10:36:00 PH,URINE 5.0 UNITS 5.0-9 .0 No Flag 01/08/2017 10:36:00 URINE PROTEIN NEGATIVE mg/dL NEGATIVE No Flag 01/08/2017 10:36:00 URINE GLUCOSE (UA) NEGATIVE mg/dL NEGATIVE No Flag 01/08/2017 10:36:00 URINE KETONE NEGATIVE mg/dL NEGATIVE No Flag 01/08/2017 10:36:00 URINE UROBILINOGEN NORMAL MG/DL NORMAL No Flag 01/08/2017 10:36:00 URINE BILIRUBIN NEGATIVE NEGATIVE No Flag 01/08/2017 10:36:00 URINE BLOOD NEGATIVE NE GATIVE No Flag 01/08/2017 10:36:00 GLOMERULAR FILTRATION RAT 63 mL/min -- No Flag 01/04/2017 08:35:00 GLUCOSE 112 mg/dL 74-106 H 01/04/2017 08:35:00 BLOOD UREA NITROGEN 21 mg/dL 7-18 H 01/04/2017 08:35:00 CREATININE 0.9 mg/dL 0.6 -1.1 No Flag 01/04/2017 08:35:00 SODIUM 142 mmol/L 136-145 No Flag 01/04/2017 08:35:00 POTASSIUM 4.3 mmol/L 3.5 -5.1 No Flag 01/04/2017 08:35:00 CHLORIDE 104 mmol/L 98-1 07 No Flag 01/04/2017 08:35:00 CO2 29 mmol/L 23-34 No Flag 01/04/2017 08:35:00 CALCIUM 8.6 mg/dL 8.5-10 .1 No Flag 01/04/2017 08:35:00 ANION GAP 9.0 mmol/L 5-12 No Flag 01/04/2017 08:35:00 MAGNESIUM 1.9 meq/L 1.8- 2.4 No Flag 01/04/2017 08:35:00 WHITE BLOOD COUNT 6.7 K/mm3 4.0-10.0 No Flag 01/04/2017 08:10:00 RED BLOOD COUNT 4.42 M/mm3 4.00-5.50 No Flag 01/04/2017 08:10:00 HEMOGLOBIN 10.5 gm/dL 12 .0-16.0 L 01/04/2017 08:10:00 HEMATOCRIT 34.1 % 36.0-4 8.8 L 01/04/2017 08:10:00 MEAN CELL VOLUME 77.1 fl 80-96 L 01/04/2017 08:10:00 MEAN CORPUSCULAR HEMOGLOB 23.8 pg 27.0-31.0 L 01/04/2017 08:10:00 MEAN CORPUSCULAR HGB CONC 30.8 g/dl 32.0- 36.0 L 01/04/2017 08:10:00 RED CELL DISTRIBUTION WID 18.5 % 10.0-14.5 H 01/04/2017 08:10:00 PLATELET COUNT 237 K/mm3 172-450 No Flag 01/04/2017 08:10:00 MEAN PLATELET VOLUME 12.0 fl 9.0-13.0 No Flag 01/04/2017 08:10:00 GRAN % 60.4 % 50-80.0 No Flag 01/04/2017 08:10:00 LYMPH % 27.9 % 25.0-50.0 No Flag 01/04/2017 08:10:00 MONO % 8.1 % 2.0-10.0 No Flag 01/04/2017 08:10:00 EOS % 2.4 % 0-5.0 No Flag 01/04/2017 08:10:00 BASO % 1.2 % 0.0-2.0 No Flag 01/04/2017 08:10:00 GRAN # 4.1 2.0-8.00 No Flag 01/04/2017 08:10:00 LYMPH # 1.9 1.0-5.0 No Flag 01/04/2017 08:10:00 MONO # 0.5 0.10-1.20 No Flag 01/04/2017 08:10:00 EOS # 0.2 0.0-0.5 No Flag 01/04/2017 08:10:00 BASO # 0.1 K/mm3 0.0-0.2 No Flag 01/04/2017 08:10:00 PLATELET ESTIMATE NORMAL NORMAL No Flag 01/04/2017 08:10:00 POLYCHROMASIA 1+ -- No Flag 01/04/2017 08:10:00 HYPOCHROMIA 1+ -- No Flag 01/04/2017 08:10:00 POIKILOCYTOSIS 1+ -- No Flag 01/04/2017 08:10:00 ANISOCYTOSIS 2+ -- No Flag 01/04/2017 08:10:00 MICROCYTOSIS 2+ -- No Flag 01/04/2017 08:10:00 MACROCYTOSIS 1+ -- No Flag 01/04/2017 08:10:00 OVALOCYTES 1+ -- No Flag 01/04/2017 08:10:00 STOMATOCYTE 1+ -- No Flag 01/04/2017 08:10:00 N/A Service Date and Time: 12/19/2016 1549 Technologist: DWAYNE <OBX.5.1><OBX.5.1.1>Exam Requested: CT ABD </OBX.5.1.1><OBX.5.1.2> PELVIS W/O FOL BY WIT</OBX.5.1.2></OBX.5.1> Reason for Patient Visit: RIGHT KIDNEY ATROPHY, LEFT KIDNEY DENSITY Reason for Exam: RIGHT KIDNEY ATROPHY, LEFT KIDNEY DENSITY Clinical: Nonspecific left renal density. Comparison: 12/24/2015. Technique: Axial contrast enhanced images from the lung bases to the pubic symphysis using oral and 100 ml Isovue 370 intravenous contrast material in the corticomedullary phase of renal enhancement along with precontrast, arterial phase, and delayed phase images of the abdomen. Coronal and sagittal re-formations obtained. Findings: The right kidney demonstrates chronic atrophy with evidence for enhancement suggesting some element of renal function, and no evidence for cyst, nephrolithiasis, hydroureteronephrosis or mass lesion. The left kidney is normal in all phases of enhancement and includes 5 mm upper pole simple cyst without hydroureternephrosis, nephrolithiasis, or renal mass lesion. Liver, spleen, pancreas, gallbladder, and bilateral adrenal glands are normal. The enteric system is without obstruction or acute inflammatory process. Sigmoid diverticula noted without acute diverticulitis. Pelvis demonstrates normal bladder and age-appropriate uterus/adnexa uterine fibroid suggested. Calcifications in the pelvis compatible with phleboliths. No ascites. No free air. No intraperitoneal or retroperitoneal adenopathy. Atherosclerotic changes of the aorta and vasculature without aneurysm or dissection. Musculoskeletal structures without focal osseous abnormality. Lung bases are clear. Large gastric hiatal hernia again noted. Impression: 1. Atrophic right kidney with essentially normal left kidney demonstrating 5 mm simple upper pole cyst. 2. Sigmoid diverticula without acute diverticulitis. 3. Large gastric hiatal hernia. Signed by Judd Hernandez MD 12/19/2016 04:09 P DD: ROLLY 12/19/2016 1604 DT: [email or web address] 12/19/2016 1609 DS: ROLLY 12/19/2016 1609 The Following Link and Pin can be used to access images associated with this report: [email or web address] N/A N/A 12/19/2016 14:15:00 BLOOD UREA NITROGEN 17 mg/dL 7-18 No Flag 12/16/2016 09:20:00 CREATININE 0.9 mg/dL 0.6 -1.1 No Flag 12/16/2016 09:20:00 N/A Service Date and Time: 07/12/2016 1138 Technologist: SREE Exam Requested: RENAL US Reason for Patient Visit: RT ATROPHIC KIDNEY LT KIDNEY CYST Reason for Exam: R93.5 NONSPEC ABDN FINDINGS ON RADIOLOGICAL INC RETROPERITON RENAL AND BLADDER ULTRASOUND: Real-time sonographic evaluation of kidneys performed. Right kidney is markedly atrophic. It measures 6.2 x 2.4 x 2.3 cm. It is diffusely echogenic with no hydronephrosis. No renal mass is seen. Left kidney demonstrates apparent compensatory hypertrophy measuring 14.4 x 6.0 x 6.7 cm. There is no hydronephrosis, renal mass, or cyst, and no evidence of nephrolithiasis. Urinary bladder is grossly unremarkable with no gross mass or calculus. IMPRESSION: Right renal atrophy. Apparent compensatory hypertrophy left kidney without evidence of mass or cyst. A tiny probable cystic structure less than 1 cm in diameter seen on the CT 12/24/2015 in the left kidney is not seen by ultrasound. Followup may be obtained with dedicated CT of the kidneys if desired. Signed by Darius Suazo MD 07/12/2016 07:52 P DD: RUPERTO 07/12/2016 1450 DT: [id number] 07/12/2016 1514 DS: RUPERTO 07/12/2016 1952 The Following Link and Pin can be used to access images associated with this report: [email or web address] N/A N/A 07/12/2016 11:00:00 GLOMERULAR FILTRATION RATE 59.2 >45 No Flag 12/29/2015 18:08:00 GLUCOSE, FASTING 93 MG/DL 80-110 No Flag 12/29/2015 18:08:00 BLOOD UREA NITROGEN 16 MG/DL 7-18 No Flag 12/29/2015 18:08:00 CREATININE FOR GFR 1.00 MG/DL 0.55-1.02 No Flag 12/29/2015 18:08:00 SODIUM LEVEL 140 MEQ/L 1 36-145 No Flag 12/29/2015 18:08:00 POTASSIUM SERUM 4.4 MEQ/L 3.5-5.1 No Flag 12/29/2015 18:08:00 CHLORIDE LEVEL 107 MEQ/L 98-107 No Flag 12/29/2015 18:08:00 CARBON DIOXIDE LEVEL 26 MEQ/L 21-32 No Flag 12/29/2015 18:08:00 ANION GAP 7 MEQ/L 8-16 L 12/29/2015 18:08:00 CALCIUM LEVEL 9.0 MG/DL 8.8-10.2 No Flag 12/29/2015 18:08:00 N/A Service Date and Time: 12/24/2015 1531 Technologist: HIEU Exam Requested: CT ABD & PELVIS W/O FOL BY WIT Reason for Patient Visit: ABD/PELVC PAIN Reason for Exam: ABD PAIN AND BLOATING CT abdomen and pelvis with IV and oral contrast: INDICATION: Abdominal pain and bloating. Comparison: None. After drinking two cups of oral contrast, each containing 10 mL Gastrografin and 290 ml water, 3 mm continuous spiral axial sections were performed through the abdomen. Following IV contrast injection with 100 mL Isovue 370 mg/ml, 3 mm continuous spiral axial sections were performed through the abdomen and pelvis. Delayed 3 minute images were also performed through the abdomen. Findings: The lung bases are clear bilaterally. There is a large retrocardiac hiatal hernia, which is incompletely included in view, but measures at least 10 cm in transverse dimension and is contrast filled in its visualized portions. There is moderate superior displacement of the proximal gastric body into the lower central chest. The liver, spleen, pancreas, gallbladder are normal. Adrenal glands are normal. There is a diffusely atrophic right kidney. It measures 4.5 cm cranial caudal dimension, and does have a small amount of cortical perfusion. There is no hydronephrosis bilaterally. There are no visualized intrarenal masses. There is a 5 mm hypodense focus in the upper pole left kidney, likely a tiny cyst, yet too small to accurately characterize. The small bowel is without obstruction. The terminal ileum is normal. The appendix is not definitely seen, however, there is no appendiceal inflammation. Abdominal aorta is of normal course and caliber. The bladder is unremarkable. There is a 1.4 cm mesenteric calcification versus large phlebolith within the right posterior lower pelvis. The uterus is mildly generous in size for age and postmenopausal status. There are no adnexal masses. The colon is unremarkable. There is no free intraperitoneal air or ascites. There is a large amount of subcutaneous fat. Impression:1. Large retrocardiac hiatal hernia (10 cm diameter) containing a moderate portion of the proximal stomach. The entire hiatal hernia is not included in the field of view. 2. Diffusely atrophic right kidney, 4.5 cm size. 3. 5 mm hypodense focus in the upper pole left kidney, too small to accurately characterize, yet is most compatible with a small renal cortical cyst. No hydronephrosis. 4. 1.4 cm phlebolith vs mesenteric calcification in right lower pelvis. Signed by Vanessa Samuel MD 12/26/2015 10:17 P 1643 DT: МАРИЯ 12/25/2015 0911 DS: CRAIG 12/26/2015 2217 The Following Link and Pin can be used to access images associated with this report: [email or web address] [id number] N/A N/A 12/24/2015 13:34:00 BLOOD UREA NITROGEN 19 mg/dL 7-18 H 12/23/2015 14:18:00 CREATININE 1.4 mg/dL 0.6 -1.3 H 12/23/2015 14:18:00 GLOMERULAR FILTRATION RATE > 60.0 >45 No Flag 07/21/2015 18:11:00 GLUCOSE, FASTING 105 MG/DL 80-110 No Flag 07/21/2015 18:11:00 BLOOD UREA NITROGEN 13 MG/DL 7-18 No Flag 07/21/2015 18:11:00 CREATININE FOR GFR 0.92 MG/DL 0.55-1.02 No Flag 07/21/2015 18:11:00 SODIUM LEVEL 142 MEQ/L 1 36-145 No Flag 07/21/2015 18:11:00 POTASSIUM SERUM 4.2 MEQ/L 3.5-5.1 No Flag 07/21/2015 18:11:00 CHLORIDE LEVEL 108 MEQ/L 98-107 H 07/21/2015 18:11:00 CARBON DIOXIDE LEVEL 26 MEQ/L 21-32 No Flag 07/21/2015 18:11:00 ANION GAP 8 MEQ/L 8-16 No Flag 07/21/2015 18:11:00 CALCIUM LEVEL 9.1 MG/DL 8.8-10.2 No Flag 07/21/2015 18:11:00 AST/SGOT 16 U/L 15-37 No Flag 07/21/2015 18:11:00 ALT/SGPT 33 U/L 12-78 No Flag 07/21/2015 18:11:00 ALKALINE PHOSPHATASE 86 U/L 45-117 No Flag 07/21/2015 18:11:00 BILIRUBIN,TOTAL 0.5 MG/DL 0.2-1.0 No Flag 07/21/2015 18:11:00 TOTAL PROTEIN 6.8 GM/DL 6.4-8.2 No Flag 07/21/2015 18:11:00 ALBUMIN 3.8 GM/DL 3.2-5.2 No Flag 07/21/2015 18:11:00 ALBUMIN/GLOBULIN RATIO 1.27 1.00-1.93 No Flag 07/21/2015 18:11:00 TRIGLYCERIDES LEVEL 187 MG/DL <150 H 07/21/2015 18:11:00 CHOLESTEROL LEVEL 157 MG/DL <200 No Flag 07/21/2015 18:11:00 HDL CHOLESTEROL 42 MG/DL >40 No Flag 07/21/2015 18:11:00 LDL CHOLESTEROL 77.6 MG/DL <100 No Flag 07/21/2015 18:11:00 NON-HDL-C 115 MG/DL -- No Flag 07/21/2015 18:11:00 CHOLESTEROL RISK RATIO 3.738 <5 No Flag 07/21/2015 18:11:00 THYROID STIMULATING HORMONE 1.600 uIU/ML 0.358-3.740 No Flag 07/21/2015 18:11:00 WHITE BLOOD COUNT 5.7 K/mm3 5.0-10.0 No Flag 07/21/2015 17:42:00 RED BLOOD COUNT 4.79 M/mm3 4.00-5.40 No Flag 07/21/2015 17:42:00 HEMOGLOBIN 14.0 g/dl 12. 0-16.0 No Flag 07/21/2015 17:42:00 HEMATOCRIT 42.7 % 36.0-4 7.0 No Flag 07/21/2015 17:42:00 MEAN CORPUSCULAR VOLUME 89.2 fl 80.0-96.0 No Flag 07/21/2015 17:42:00 MEAN CORPUSCULAR HEMOGLOBIN 29.3 pg 27.0- 33.0 No Flag 07/21/2015 17:42:00 MEAN CORPUSCULAR HGB CONC 32.8 g/dl 32.0- 36.5 No Flag 07/21/2015 17:42:00 RED CELL DISTRIBUTION WIDTH 13.9 % 11.5-14.5 No Flag 07/21/2015 17:42:00 PLATELET COUNT, AUTOMATED 196 k/mm3 172-450 No Flag 07/21/2015 17:42:00 NEUTROPHILS % 58.1 % 36. 0-66.0 No Flag 07/21/2015 17:42:00 LYMPH % 29.9 % 24.0-44.0 No Flag 07/21/2015 17:42:00 MONO % 5.6 % 0.0-5.0 H 07/21/2015 17:42:00 EOS % 3.7 % 0.0-3.0 H 07/21/2015 17:42:00 BASO % 0.6 % 0.0-1.0 No Flag 07/21/2015 17:42:00 NEUTROPHILS # 3.3 K/mm3 1.8-7.7 No Flag 07/21/2015 17:42:00 LYMPH # 1.8 K/mm3 1.5-4.5 No Flag 07/21/2015 17:42:00 MONO # 0.3 K/mm3 0.0-0.8 No Flag 07/21/2015 17:42:00 EOS # 0.2 K/mm3 0.0-0.50 No Flag 07/21/2015 17:42:00 BASO # 0.0 K/mm3 0.0-0.2 No Flag 07/21/2015 17:42:00 SOCIAL HISTORY Social History Observation Description Dates Observed Smoking Status Never smoker, [SNOMED -CT: [id number]] TREATMENT PLAN Encounter Date [facility] 05/25/2021 12:06:31 This visit was spent in reviewing with the patient their chart, prior labs and testing, speaking with the patient via telemedicineaudio feed), answering questions and completing a plan. regarding recent ct abd and pelvis. she is also fu with Dr. Valle 8 min phone only 05/25/2021 12:06:31 This visit was spent in reviewing with the patient their chart, prior labs and testing, speaking with the patient via telemedicineaudio feed), answering questions and completing a plan. regarding recent ct abd and pelvis. she is also fu with Dr. Valle 8 min phone only 05/25/2021 12:06:31 This visit was spent in reviewing with the patient their chart, prior labs and testing, speaking with the patient via telemedicineaudio feed), answering questions and completing a plan. regarding recent ct abd and pelvis. she is also fu with Dr. Valle 8 min phone only 11/09/2020 12:23:28 recheck lipids in march reminder sent 6 min phone only 11/09/2020 12:23:28 recheck lipids in march reminder sent 6 min phone only 11/09/2020 12:23:28 recheck lipids in march reminder sent 6 min phone only 10/04/2020 09:31:39 PRESCRIBE: omeprazole 20 mg oral delayed release capsule, one po daily prn gerd, # 90, RF: 3. (Transmitted by Mayuri Metzger DO) PRESCRIBE: lisinopril 20 mg oral tablet, one po daily, # 90, RF: 3. (Transmitted by Mayuri Metzger DO) CHANGED Current Meds: omeprazole 20 mg oral delayed release capsule ORDERED/ADVISED: Order Date 10-04-2020 - Memo Webster (Gastroenterology) (due for colonoscopy) PROVIDED HM: High Blood Pressure in Adults: Screening Given: Isolated elevated reading. This is a problem if you have 3 reading consistently over 140/90. If consistently elevated, return in 3 months. Stop in at any time for bp check here in the office or at [facility] without cost. PROVIDED HM: CDSMP Given: weight is stable so far....so warm and no gain....whole foods not processed foods PROVIDED HM: Tobacco use counseling and interventions: non- adults Given: NA PROVIDED HM: Screening for Depression in Adults Given: 2 question screen neg ORDERED/ADVISED: Order Date 10-04-2020 - Lipid Panel (R19.5, R53.81, E78.49, K21.0, Z00.00, I10) - TSH (R19.5, R53.81, E78.49, K21.0, Z00.00, I10) ORDERED/ADVISED: Order Date 10-04-2020 - Screening Mammogram (Z12.39) PROVIDED HM: Osteoporosis: Screening in Women 65years and Older Given: Patient has refused this Decision Support. PROVIDED HM: Assess Adult Immunization Status Given: has had first.dose of covid 10/04/2020 09:31:39 PRESCRIBE: omeprazole 20 mg oral delayed release capsule, one po daily prn gerd, # 90, RF: 3. (Transmitted by Mayuri Metzger DO) PRESCRIBE: lisinopril 20 mg oral tablet, one po daily, # 90, RF: 3. (Transmitted by Mayuri Metzger DO) CHANGED Current Meds: omeprazole 20 mg oral delayed release capsule ORDERED/ADVISED: Order Date 10-04-2020 - Memo Webster (Gastroenterology) (due for colonoscopy) PROVIDED HM: High Blood Pressure in Adults: Screening Given: Isolated elevated reading. This is a problem if you have 3 reading consistently over 140/90. If consistently elevated, return in 3 months. Stop in at any time for bp check here in the office or at [facility] without cost. PROVIDED HM: CDSMP Given: weight is stable so far....so warm and no gain....whole foods not processed foods PROVIDED HM: Tobacco use counseling and interventions: non- adults Given: NA PROVIDED HM: Screening for Depression in Adults Given: 2 question screen neg ORDERED/ADVISED: Order Date 10-04-2020 - Lipid Panel (R19.5, R53.81, E78.49, K21.0, Z00.00, I10) - TSH (R19.5, R53.81, E78.49, K21.0, Z00.00, I10) ORDERED/ADVISED: Order Date 10-04-2020 - Screening Mammogram (Z12.39) PROVIDED HM: Osteoporosis: Screening in Women 65years and Older Given: Patient has refused this Decision Support. PROVIDED HM: Assess Adult Immunization Status Given: has had first.dose of covid 10/04/2020 09:31:39 PRESCRIBE: omeprazole 20 mg oral delayed release capsule, one po daily prn gerd, # 90, RF: 3. (Transmitted by Mayuri Metzger DO) PRESCRIBE: lisinopril 20 mg oral tablet, one po daily, # 90, RF: 3. (Transmitted by Mayuri Metzger DO) CHANGED Current Meds: omeprazole 20 mg oral delayed release capsule ORDERED/ADVISED: Order Date 10-04-2020 - Memo Webster (Gastroenterology) (due for colonoscopy) PROVIDED HM: High Blood Pressure in Adults: Screening Given: Isolated elevated reading. This is a problem if you have 3 reading consistently over 140/90. If consistently elevated, return in 3 months. Stop in at any time for bp check here in the office or at [facility] without cost. PROVIDED HM: CDSMP Given: weight is stable so far....so warm and no gain....whole foods not processed foods PROVIDED HM: Tobacco use counseling and interventions: non- adults Given: NA PROVIDED HM: Screening for Depression in Adults Given: 2 question screen neg ORDERED/ADVISED: Order Date 10-04-2020 - Lipid Panel (R19.5, R53.81, E78.49, K21.0, Z00.00, I10) - TSH (R19.5, R53.81, E78.49, K21.0, Z00.00, I10) ORDERED/ADVISED: Order Date 10-04-2020 - Screening Mammogram (Z12.39) PROVIDED HM: Osteoporosis: Screening in Women 65years and Older Given: Patient has refused this Decision Support. PROVIDED HM: Assess Adult Immunization Status Given: has had first.dose of covid 08/27/2020 09:26:12 This visit was spent in reviewing with the patient their chart, labs and testing, speaking with the patient via telemedicine(video feed), answering questions and completing a plan. I have discussed with this patient the natural history of this disease and potential for worsening and what those early hallmarks maybe. Please call me should you have any further questions or concerns or worsening of your condition. Monitor temp and call if fever >100 You are the one to use a mask if sick and self quarentine for 14 days to protect others from you if necessary. "Social communication with physical isolation. " [facility] [phone] Paulo [facility] [place] [phone] You can also calll [facility] regarding the contact and possible testing. phone only 21 min 08/27/2020 09:26:12 This visit was spent in reviewing with the patient their chart, labs and testing, speaking with the patient via telemedicine(video feed), answering questions and completing a plan. I have discussed with this patient the natural history of this disease and potential for worsening and what those early hallmarks maybe. Please call me should you have any further questions or concerns or worsening of your condition. Monitor temp and call if fever >100 You are the one to use a mask if sick and self quarentine for 14 days to protect others from you if necessary. "Social communication with physical isolation. " [facility] [phone] Paulo [place]. [phone] You can also calll [facility] regarding the contact and possible testing. phone only 19 min 08/27/2020 09:26:12 This visit was spent in reviewing with the patient their chart, labs and testing, speaking with the patient via telemedicine(video feed), answering questions and completing a plan. I have discussed with this patient the natural history of this disease and potential for worsening and what those early hallmarks maybe. Please call me should you have any further questions or concerns or worsening of your condition. Monitor temp and call if fever >100 You are the one to use a mask if sick and self quarentine for 14 days to protect others from you if necessary. "Social communication with physical isolation. " [facility] [phone] [facility] [phone] You can also calll [facility] regarding the contact and possible testing. phone only 21 min 04/30/2020 09:34:59 PROVIDED HM: CDSMP Given: "the obesity code", " the diabetes code", and "quide to fasting" also "the longevity solution" by Sam Chen MD You can download a [employer] awilda to your computer and get these books on enercast. Watch the movie "the magic pill" documentary on [employer] Also [employer] movie call " Fat" the documentary [employer] Sam Chen [employer] and watch it You can also find many you tube videos by Dr. Chen. 04/30/2020 09:34:59 PROVIDED HM: CDSMP Given: "the obesity code", " the diabetes code", and "quide to fasting" also "the longevity solution" by Sam Chen MD You can download a [employer] awilda to your computer and get these books on enercast. Watch the movie "the magic pill" documentary on [employer] Also [employer] movie call " Fat" the documentary [employer] Sam Chen [employer] and watch it You can also find many you tube videos by Dr. Chen. 04/30/2020 09:34:59 PROVIDED HM: CDSMP Given: "the obesity code", " the diabetes code", and "quide to fasting" also "the longevity solution" by Sam Chen MD You can download a [employer] awilda to your computer and get these books on enercast. Watch the movie "the magic pill" documentary on [employer] Also [employer] movie call " Fat" the documentary [employer] Sam Chen [employer] and watch it You can also find many you tube videos by Dr. Chen. 10/03/2019 09:01:54 Plan printed and provided to patient: REMOVED from Current Meds: lisinopril 10 mg oral tablet, One tablet daily, # 90, RF: 3. (Transmitted by Mayuri Metzger DO) PRESCRIBE: omeprazole 20 mg oral delayed release capsule, one po daily prn gerd, # 90, RF: 3. (Transmitted by Mayuri Metzger, ) PRESCRIBE: lisinopril 20 mg oral tablet, one po daily, # 90, RF: 3. (Transmitted by Mayuri Metzger, ) PRESCRIBE: omeprazole 20 mg oral delayed release capsule, one po daily prn gerd, # 90, RF: 3. (Transmitted by Mayuri Metzger, ) PRESCRIBE: lisinopril 10 mg oral tablet, One tablet daily, # 90, RF: 3. (Transmitted by Mayuri Metzger, ) PROVIDED HM: CDSMP Given: "the obesity code", " the diabetes code", and "quide to fasting" also "the longevity solution" by Sam Chen MD You can download a [employer] awilda to your computer and get these books on enercast. Watch the movie "the magic pill" documentary on [employer] Also [employer] movie call " Fat" the documentary [employer] Sam Chen [employer] and watch it (1hr) You can also find many you tube videos by Dr. Chen. PROVIDED HM: High Blood Pressure in Adults: Screening Given: 148/68 PROVIDED HM: Tobacco use counseling and interventions: non- adults Given: NI PROVIDED HM: Screening for Depression in Adults Given: 2 question screen neg PROVIDED HM: Screening for Anxiety Given: Score of zero PROVIDED HM: Assess Adult Immunization Status Given: Get your pneumonia and flushot ORDERED/ADVISED: Order Date 10-03-2019 - Screening Mammogram (Z12.39) ORDERED/ADVISED: Order Date 10-03-2019 - CBC with diff (automated) - CMP (Complete Metabolic Panel) - Lipid Panel - TSH (Fatigue and malaise) (Z12.39, R73.9, E78.49, K21.0, Z00.00) 10/03/2019 09:01:54 Plan printed and provided to patient: REMOVED from Current Meds: lisinopril 10 mg oral tablet, One tablet daily, # 90, RF: 3. (Transmitted by Mayuri Metzger, ) PRESCRIBE: omeprazole 20 mg oral delayed release capsule, one po daily prn gerd, # 90, RF: 3. (Transmitted by Mayuri Metzger, ) PRESCRIBE: lisinopril 20 mg oral tablet, one po daily, # 90, RF: 3. (Transmitted by Mayuri Metzger, ) PRESCRIBE: omeprazole 20 mg oral delayed release capsule, one po daily prn gerd, # 90, RF: 3. (Transmitted by Mayuri Metzger, ) PRESCRIBE: lisinopril 10 mg oral tablet, One tablet daily, # 90, RF: 3. (Transmitted by Mayuri Metzger DO) PROVIDED HM: CDSMP Given: "the obesity code", " the diabetes code", and "quide to fasting" also "the longevity solution" by Sam Chen MD You can download a [employer] awilda to your computer and get these books on enercast. Watch the movie "the magic pill" documentary on [employer] Also [employer] movie call " Fat" the documentary [employer] Sam Chen [employer] and watch it (1hr) You can also find many you tube videos by Dr. Chen. PROVIDED HM: High Blood Pressure in Adults: Screening Given: 148/68 PROVIDED HM: Tobacco use counseling and interventions: non- adults Given: NI PROVIDED HM: Screening for Depression in Adults Given: 2 question screen neg PROVIDED HM: Screening for Anxiety Given: Score of zero PROVIDED HM: Assess Adult Immunization Status Given: Get your pneumonia and flushot ORDERED/ADVISED: Order Date 10-03-2019 - Screening Mammogram (Z12.39) ORDERED/ADVISED: Order Date 10-03-2019 - CBC with diff (automated) - CMP (Complete Metabolic Panel) - Lipid Panel - TSH (Fatigue and malaise) (Z12.39, R73.9, E78.49, K21.0, Z00.00) 10/03/2019 09:01:54 Plan printed and provided to patient: REMOVED from Current Meds: lisinopril 10 mg oral tablet, One tablet daily, # 90, RF: 3. (Transmitted by Mayuri Metzger, ) PRESCRIBE: omeprazole 20 mg oral delayed release capsule, one po daily prn gerd, # 90, RF: 3. (Transmitted by Mayuri Metzger, ) PRESCRIBE: lisinopril 20 mg oral tablet, one po daily, # 90, RF: 3. (Transmitted by Mayuri Metzger, ) PRESCRIBE: omeprazole 20 mg oral delayed release capsule, one po daily prn gerd, # 90, RF: 3. (Transmitted by Mayuri Metzger DO) PRESCRIBE: lisinopril 10 mg oral tablet, One tablet daily, # 90, RF: 3. (Transmitted by Mayuri MetzgerDO) PROVIDED HM: CDSMP Given: "the obesity code", " the diabetes code", and "quide to fasting" also "the longevity solution" by Sam Chen MD You can download a [employer] awilda to your computer and get these books on enercast. Watch the movie "the magic pill" documentary on [employer] Also Play[employer]ore movie call " Fat" the documentary [employer] Sam Chen [employer] and watch it (1hr) You can also find many you tube videos by Dr. Chen. PROVIDED HM: High Blood Pressure in Adults: Screening Given: 148/68 PROVIDED HM: Tobacco use counseling and interventions: non- adults Given: NI PROVIDED HM: Screening for Depression in Adults Given: 2 question screen neg PROVIDED HM: Screening for Anxiety Given: Score of zero PROVIDED HM: Assess Adult Immunization Status Given: Get your pneumonia and flushot ORDERED/ADVISED: Order Date 10-03-2019 - Screening Mammogram (Z12.39) ORDERED/ADVISED: Order Date 10-03-2019 - CBC with diff (automated) - CMP (Complete Metabolic Panel) - Lipid Panel - TSH (Fatigue and malaise) (Z12.39, R73.9, E78.49, K21.0, Z00.00) 09/25/2018 09:30:24 Plan printed and provided to patient: PRESCRIBE: omeprazole 20 mg oral delayed release capsule, one po daily prn gerd, # 90, RF: 3. (Transmitted by Mayuri Metzger DO) PRESCRIBE: lisinopril 10 mg oral tablet, One tablet daily, # 90, RF: 3. (Transmitted by Mayuri Metzger DO) REMOVED from Current Meds: ProAir HFA 90 mcg/inh inhalation aerosol, two puffs qid prn wheeze, # 1, RF: 1. (Transmitted by Mayuri Metzger DO) Date Prescribed: 12/06/2016 REMOVED from Current Meds: rosuvastatin 10 mg oral tablet, one po daily, # 90, RF: 0. (Transmitted by Mayuri Metzger DO) Date Prescribed: 05/06/2018 REMOVED from Current Meds: ciprofloxacin 0.3% ophthalmic solution, one or two gtts qid OU, # 10, RF: 0. (Transmitted by Mayuri Metzger DO) Date Prescribed: 10/31/2017 REMOVED from Current Meds: Cheratussin AC 10 mg-100 mg/5 mL oral syrup, one or two tsp po qid prn cough, # 200 , RF: 1. Date Prescribed: 10/31/2017 PROVIDED HM: Diabetes Prevention Program Given: done may 2016 and repeat 2020 PROVIDED HM: Healthy Diet and Physical Activity: Counseling Adults with High Risk of CVD Given: Urged to walk at least 5 times/week and eat a more plant based diet. DASH diet(Dietary Approaches to Stop High BP Fruits/vegetables/whole grains/Low fat dairy Limit saturated fats/total fat and sodium Recommend foods high in calcium and potassium Vitamin D supplement PROVIDED HM: High Blood Pressure in Adults: Screening Given: 140/86 PROVIDED VACCINATION: 1 dose of Flucelvax Quadrivalent, 0.5 mL IM in the Right Deltoid (Mfg: SEQIRUS lot no. [id number], expires 01/31/2019) PROVIDED HM: Tobacco use counseling and interventions: non- adults Given: NI PROVIDED HM: Screening for Depression in Adults Given: Neg PROVIDED HM: Screening and Behavioral Counseling Interventions in Primary Care to Reduce Alcohol Misuse in Adults Given: None PROVIDED HM: Assess Adult Immunization Status Given: You should get prevnar 13 this year and pneumovax 23 next year ORDERED/ADVISED: Order Date 09-25-2018 - CBC with diff (automated) (M60.9, K21.0, Z00.00, I10) - CMP (Complete Metabolic Panel) (M60.9, K21.0, Z00.00, I10) - Lipid Panel (M60.9, K21.0, Z00.00, I10) - Hep C screen (M60.9, K21.0, Z00.00, I10) ORDERED/ADVISED: Order Date 09-25-2018 - Screening Mammogram 09/25/2018 09:30:24 Plan printed and provided to patient: PRESCRIBE: omeprazole 20 mg oral delayed release capsule, one po daily prn gerd, # 90, RF: 3. (Transmitted by Mayuri Metzger DO) PRESCRIBE: lisinopril 10 mg oral tablet, One tablet daily, # 90, RF: 3. (Transmitted by Mayuri Metzger DO) REMOVED from Current Meds: ProAir HFA 90 mcg/inh inhalation aerosol, two puffs qid prn wheeze, # 1, RF: 1. (Transmitted by Mayuri Metzger DO) Date Prescribed: 12/06/2016 REMOVED from Current Meds: rosuvastatin 10 mg oral tablet, one po daily, # 90, RF: 0. (Transmitted by Mayuri Metzger DO) Date Prescribed: 05/06/2018 REMOVED from Current Meds: ciprofloxacin 0.3% ophthalmic solution, one or two gtts qid OU, # 10, RF: 0. (Transmitted by Mayuri Metzger DO) Date Prescribed: 10/31/2017 REMOVED from Current Meds: Cheratussin AC 10 mg-100 mg/5 mL oral syrup, one or two tsp po qid prn cough, # 200 , RF: 1. Date Prescribed: 10/31/2017 PROVIDED HM: Diabetes Prevention Program Given: done may 2016 and 2020 PROVIDED HM: Healthy Diet and Physical Activity: Counseling Adults with High Risk of CVD Given: Urged to walk at least 5 times/week and eat a more plant based diet. DASH diet(Dietary Approaches to Stop High BP Fruits/vegetables/whole grains/Low fat dairy Limit saturated fats/total fat and sodium Recommend foods high in calcium and potassium Vitamin D supplement PROVIDED HM: High Blood Pressure in Adults: Screening Given: 140/86 PROVIDED VACCINATION: 1 dose of Flucelvax Quadrivalent, 0.5 mL IM in the Right Deltoid (Mfg: SEQIRUS lot no. [id number], expires 01/31/2019) PROVIDED HM: Tobacco use counseling and interventions: non- adults Given: NI PROVIDED HM: Screening for Depression in Adults Given: Neg PROVIDED HM: Screening and Behavioral Counseling Interventions in Primary Care to Reduce Alcohol Misuse in Adults Given: None PROVIDED HM: Assess Adult Immunization Status Given: You should get prevnar 13 this year and pneumovax 23 next year ORDERED/ADVISED: Order Date 09-25-2018 - CBC with diff (automated) (M60.9, K21.0, Z00.00, I10) - CMP (Complete Metabolic Panel) (M60.9, K21.0, Z00.00, I10) - Lipid Panel (M60.9, K21.0, Z00.00, I10) - Hep C screen (M60.9, K21.0, Z00.00, I10) ORDERED/ADVISED: Order Date 09-25-2018 - Screening Mammogram 09/25/2018 09:30:24 Plan printed and provided to patient: PRESCRIBE: omeprazole 20 mg oral delayed release capsule, one po daily prn gerd, # 90, RF: 3. (Transmitted by Mayuri Metzger DO) PRESCRIBE: lisinopril 10 mg oral tablet, One tablet daily, # 90, RF: 3. (Transmitted by Mayuri Metzger DO) REMOVED from Current Meds: ProAir HFA 90 mcg/inh inhalation aerosol, two puffs qid prn wheeze, # 1, RF: 1. (Transmitted by Mayuri Metzger DO) Date Prescribed: 12/06/2016 REMOVED from Current Meds: rosuvastatin 10 mg oral tablet, one po daily, # 90, RF: 0. (Transmitted by Mayuri Metzger DO) Date Prescribed: 05/06/2018 REMOVED from Current Meds: ciprofloxacin 0.3% ophthalmic solution, one or two gtts qid OU, # 10, RF: 0. (Transmitted by Mayuri Metzger DO) Date Prescribed: 10/31/2017 REMOVED from Current Meds: Cheratussin AC 10 mg-100 mg/5 mL oral syrup, one or two tsp po qid prn cough, # 200 , RF: 1. Date Prescribed: 10/31/2017 PROVIDED HM: Diabetes Prevention Program Given: done may 2016 and repeat 2020 PROVIDED HM: Healthy Diet and Physical Activity: Counseling Adults with High Risk of CVD Given: Urged to walk at least 5 times/week and eat a more plant based diet. DASH diet(Dietary Approaches to Stop High BP Fruits/vegetables/whole grains/Low fat dairy Limit saturated fats/total fat and sodium Recommend foods high in calcium and potassium Vitamin D supplement PROVIDED HM: High Blood Pressure in Adults: Screening Given: 140/86 PROVIDED VACCINATION: 1 dose of Flucelvax Quadrivalent, 0.5 mL IM in the Right Deltoid (Mfg: SEQIRUS lot no. [id number], expires 01/31/2019) PROVIDED HM: Tobacco use counseling and interventions: non- adults Given: NI PROVIDED HM: Screening for Depression in Adults Given: Neg PROVIDED HM: Screening and Behavioral Counseling Interventions in Primary Care to Reduce Alcohol Misuse in Adults Given: None PROVIDED HM: Assess Adult Immunization Status Given: You should get prevnar 13 this year and pneumovax 23 next year ORDERED/ADVISED: Order Date 09-25-2018 - CBC with diff (automated) (M60.9, K21.0, Z00.00, I10) - CMP (Complete Metabolic Panel) (M60.9, K21.0, Z00.00, I10) - Lipid Panel (M60.9, K21.0, Z00.00, I10) - Hep C screen (M60.9, K21.0, Z00.00, I10) ORDERED/ADVISED: Order Date 09-25-2018 - Screening Mammogram 05/06/2018 10:12:56 Plan printed and provided to patient: PRESCRIBE: rosuvastatin 10 mg oral tablet, one po daily, # 90, RF: 0. (Transmitted by Mayuri Metzger DO) DISCONTINUE: atorvastatin 20 mg oral tablet one po daily, REASON: stopped due to muscle pain ORDERED/ADVISED: Order Date 05-06-2018 - BMP (Basic Metabolic Panel) (E78.4, K92.1, M60.9, I10) - CBC with diff (automated) (E78.4, K92.1, M60.9, I10) - CPK (E78.4, K92.1, M60.9, I10) Continue your iron. 05/06/2018 10:12:56 Plan printed and provided to patient: PRESCRIBE: rosuvastatin 10 mg oral tablet, one po daily, # 90, RF: 0. (Transmitted by Mayuri Metzger DO) DISCONTINUE: atorvastatin 20 mg oral tablet one po daily, REASON: stopped due to muscle pain ORDERED/ADVISED: Order Date 05-06-2018 - BMP (Basic Metabolic Panel) (E78.4, K92.1, M60.9, I10) - CBC with diff (automated) (E78.4, K92.1, M60.9, I10) - CPK (E78.4, K92.1, M60.9, I10) Continue your iron. 05/06/2018 10:12:56 Plan printed and provided to patient: PRESCRIBE: rosuvastatin 10 mg oral tablet, one po daily, # 90, RF: 0. (Transmitted by Mayuri Metzger DO) DISCONTINUE: atorvastatin 20 mg oral tablet one po daily, REASON: stopped due to muscle pain ORDERED/ADVISED: Order Date 05-06-2018 - BMP (Basic Metabolic Panel) (E78.4, K92.1, M60.9, I10) - CBC with diff (automated) (E78.4, K92.1, M60.9, I10) - CPK (E78.4, K92.1, M60.9, I10) Continue your iron. 10/31/2017 11:26:07 Plan printed and provided to patient: PRESCRIBE: Cheratussin AC 10 mg-100 mg/5 mL oral syrup, one or two tsp po qid prn cough, # 200 , RF: 1. PRESCRIBE: ciprofloxacin 0.3% ophthalmic solution, one or two gtts qid OU, # 10, RF: 0. (Transmitted by Mayuri Metzger DO) ORDERED/ADVISED: - CXR - PA & Lat ICD Codes (J20.9, H10.89) 10/31/2017 11:26:07 Plan printed and provided to patient: PRESCRIBE: Cheratussin AC 10 mg-100 mg/5 mL oral syrup, one or two tsp po qid prn cough, # 200 , RF: 1. PRESCRIBE: ciprofloxacin 0.3% ophthalmic solution, one or two gtts qid OU, # 10, RF: 0. (Transmitted by Mayuri Metzger DO) ORDERED/ADVISED: - CXR - PA & Lat ICD Codes (J20.9, H10.89) 10/31/2017 11:26:07 Plan printed and provided to patient: PRESCRIBE: Cheratussin AC 10 mg-100 mg/5 mL oral syrup, one or two tsp po qid prn cough, # 200 , RF: 1. PRESCRIBE: ciprofloxacin 0.3% ophthalmic solution, one or two gtts qid OU, # 10, RF: 0. (Transmitted by Mayuri Metzger DO) ORDERED/ADVISED: - CXR - PA & Lat ICD Codes (J20.9, H10.89) 08/22/2017 11:22:11 Plan printed and provided to patient: PRESCRIBE: omeprazole 20 mg oral delayed release capsule, one po daily prn gerd, # 90, RF: 3. (Transmitted by Mayuri Metzger DO) PRESCRIBE: lisinopril 10 mg oral tablet, One tablet daily, # 90, RF: 3. (Transmitted by Mayuri Metzger DO) PRESCRIBE: atorvastatin 20 mg oral tablet, one po daily, # 90, RF: 3. (Tr ansmitted by Mayuri Metzger DO) PROVIDED HM: Osteoporosis: Screening in Women 65years and Older Given: done over the summer with some osteopenia PROVIDED HM: Healthy Diet and Physical Activity: Counseling Adults with High Risk of CVD Given: Urged to walk at least 5 times/week and eat a more plant based diet. DASH diet(Dietary Approaches to Stop High BP Fruits/vegetables/whole grains/Low fat dairy Limit saturated fats/total fat and sodium Recommend foods high in calcium and potassium Vitamin D supplement PROVIDED HM: High Blood Pressure in Adults: Screening Given: 140/90 PROVIDED HM: medication adherence Given: not an issue PROVIDED HM: Screening for Breast Cancer with Mammography (age 50-74 years) Given: up to date done in 2016 PROVIDED HM: Screening for Depression in Adults Given: Neg PROVIDED HM: Tobacco use counseling and interventions: non- adults Given: NI PROVIDED HM: Screening for Hepatitis C Given: Patient has refused this Decision Support. ORDERED/ADVISED: - CBC with diff (automated) ICD Codes (D64.9, E78.4, K21.0, Z00.00, N26.1, I10) - CMP (Complete Metabolic Panel) ICD Codes (D64.9, E78.4, K21.0, Z00.00, N26.1, I10) - Lipid Panel ICD Codes (D64.9, E78.4, K21.0, Z00.00, N26.1, I10) - TSH (fatigue and malaise) ICD Codes (D64.9, E78.4, K21.0, Z00.00, N26.1, I10) PROVIDED VACCINATION: 1 dose of Flucelvax, quadrivalent, preservative free, 0.5 mL IM in the Left Deltoid (Mfg: SEQIRUS lot no. [id number], expires 02/01/2018) PROVIDED HM: Screening and Behavioral Counseling Interventions in Primary Care to Reduce Alcohol Misuse in Adults Given: None 08/22/2017 11:22:11 Plan printed and provided to patient: PRESCRIBE: omeprazole 20 mg oral delayed release capsule, one po daily prn gerd, # 90, RF: 3. (Transmitted by Mayuri Metzger DO) PRESCRIBE: lisinopril 10 mg oral tablet, One tablet daily, # 90, RF: 3. (Transmitted by Mayuri Metzger DO) PRESCRIBE: atorvastatin 20 mg oral tablet, one po daily, # 90, RF: 3. (Tr ansmitted by Mayuri Metzger DO) PROVIDED HM: Osteoporosis: Screening in Women 65years and Older Given: done over the summer with some osteopenia PROVIDED HM: Healthy Diet and Physical Activity: Counseling Adults with High Risk of CVD Given: Urged to walk at least 5 times/week and eat a more plant based diet. DASH diet(Dietary Approaches to Stop High BP Fruits/vegetables/whole grains/Low fat dairy Limit saturated fats/total fat and sodium Recommend foods high in calcium and potassium Vitamin D supplement PROVIDED HM: High Blood Pressure in Adults: Screening Given: 140/90 PROVIDED HM: medication adherence Given: not an issue PROVIDED HM: Screening for Breast Cancer with Mammography (age 50-74 years) Given: up to date done in 2016 PROVIDED HM: Screening for Depression in Adults Given: Neg PROVIDED HM: Tobacco use counseling and interventions: non- adults Given: NI PROVIDED HM: Screening for Hepatitis C Given: Patient has refused this Decision Support. ORDERED/ADVISED: - CBC with diff (automated) ICD Codes (D64.9, E78.4, K21.0, Z00.00, N26.1, I10) - CMP (Complete Metabolic Panel) ICD Codes (D64.9, E78.4, K21.0, Z00.00, N26.1, I10) - Lipid Panel ICD Codes (D64.9, E78.4, K21.0, Z00.00, N26.1, I10) - TSH (fatigue and malaise) ICD Codes (D64.9, E78.4, K21.0, Z00.00, N26.1, I10) PROVIDED VACCINATION: 1 dose of Flucelvax, quadrivalent, preservative free, 0.5 mL IM in the Left Deltoid (Mfg: SEQIRUS lot no. [id number], expires 02/01/2018) PROVIDED HM: Screening and Behavioral Counseling Interventions in Primary Care to Reduce Alcohol Misuse in Adults Given: None 08/22/2017 11:22:11 Plan printed and provided to patient: PRESCRIBE: omeprazole 20 mg oral delayed release capsule, one po daily prn gerd, # 90, RF: 3. (Transmitted by Mayuri Metzger DO) PRESCRIBE: lisinopril 10 mg oral tablet, One tablet daily, # 90, RF: 3. (Transmitted by Mayuri Metzger DO) PRESCRIBE: atorvastatin 20 mg oral tablet, one po daily, # 90, RF: 3. (Tr ansmitted by Mayuri Metzger DO) PROVIDED HM: Osteoporosis: Screening in Women 65years and Older Given: done over the summer with some osteopenia PROVIDED HM: Healthy Diet and Physical Activity: Counseling Adults with High Risk of CVD Given: Urged to walk at least 5 times/week and eat a more plant based diet. DASH diet(Dietary Approaches to Stop High BP Fruits/vegetables/whole grains/Low fat dairy Limit saturated fats/total fat and sodium Recommend foods high in calcium and potassium Vitamin D supplement PROVIDED HM: High Blood Pressure in Adults: Screening Given: 140/90 PROVIDED HM: medication adherence Given: not an issue PROVIDED HM: Screening for Breast Cancer with Mammography (age 50-74 years) Given: up to date done in 2016 PROVIDED HM: Screening for Depression in Adults Given: Neg PROVIDED HM: Tobacco use counseling and interventions: non- adults Given: NI PROVIDED HM: Screening for Hepatitis C Given: Patient has refused this Decision Support. ORDERED/ADVISED: - CBC with diff (automated) ICD Codes (D64.9, E78.4, K21.0, Z00.00, N26.1, I10) - CMP (Complete Metabolic Panel) ICD Codes (D64.9, E78.4, K21.0, Z00.00, N26.1, I10) - Lipid Panel ICD Codes (D64.9, E78.4, K21.0, Z00.00, N26.1, I10) - TSH (fatigue and malaise) ICD Codes (D64.9, E78.4, K21.0, Z00.00, N26.1, I10) PROVIDED VACCINATION: 1 dose of Flucelvax, quadrivalent, preservative free, 0.5 mL IM in the Left Deltoid (Mfg: SEQIRUS lot no. [id number], expires 02/01/2018) PROVIDED HM: Screening and Behavioral Counseling Interventions in Primary Care to Reduce Alcohol Misuse in Adults Given: None 01/03/2017 15:06:20 Plan printed and provided to patient: ORDERED/ADVISED: - BMP (Basic Metabolic Panel) ICD Codes (R11.0, R55) - CBC with diff (automated) ICD Codes (R11.0, R55) - Magnesium Level ICD Codes (R11.0, R55) ORDERED/ADVISED: - CXR - PA & Lat (cough) ICD Codes (R11.0, R55) - EKG ICD Codes (R11.0, R55) 01/03/2017 15:06:20 Plan printed and provided to patient: ORDERED/ADVISED: - BMP (Basic Metabolic Panel) ICD Codes (R11.0, R55) - CBC with diff (automated) ICD Codes (R11.0, R55) - Magnesium Level ICD Codes (R11.0, R55) ORDERED/ADVISED: - CXR - PA & Lat (cough) ICD Codes (R11.0, R55) - EKG ICD Codes (R11.0, R55) 01/03/2017 15:06:20 Plan printed and provided to patient: ORDERED/ADVISED: - BMP (Basic Metabolic Panel) ICD Codes (R11.0, R55) - CBC with diff (automated) ICD Codes (R11.0, R55) - Magnesium Level ICD Codes (R11.0, R55) ORDERED/ADVISED: - CXR - PA & Lat (cough) ICD Codes (R11.0, R55) - EKG ICD Codes (R11.0, R55) 12/06/2016 14:29:38 Plan printed and provided to patient: PRESCRIBE: ProAir HFA 90 mcg/inh inhalation aerosol, two puffs qid prn wheeze, # 1, RF: 1. (Transmitted by Mayuri Metzger DO) PRESCRIBE: Cheratussin AC 10 mg-100 mg/5 mL oral syrup, one or two tsp po qid prn cough, # 200, RF: 1. ORDERED/ADVISED: - Ct scan kidneys (Right kidney atrophy 1cm density left kidney) ORDERED/ADVISED: - Dexa Bone Density Study Rest, fluids, tylenol, good handwashing, no work until better. 12/06/2016 14:29:38 Plan printed and provided to patient: PRESCRIBE: ProAir HFA 90 mcg/inh inhalation aerosol, two puffs qid prn wheeze, # 1, RF: 1. (Transmitted by Mayuri Metzger DO) PRESCRIBE: Cheratussin AC 10 mg-100 mg/5 mL oral syrup, one or two tsp po qid prn cough, # 200, RF: 1. ORDERED/ADVISED: - Ct scan kidneys (Right kidney atrophy 1cm density left kidney) ORDERED/ADVISED: - Dexa Bone Density Study Rest, fluids, tylenol, good handwashing, no work until better. 12/06/2016 14:29:38 Plan printed and provided to patient: PRESCRIBE: ProAir HFA 90 mcg/inh inhalation aerosol, two puffs qid prn wheeze, # 1, RF: 1. (Transmitted by Mayuri Metzger DO) PRESCRIBE: Cheratussin AC 10 mg-100 mg/5 mL oral syrup, one or two tsp po qid prn cough, # 200, RF: 1. ORDERED/ADVISED: - Ct scan kidneys (Right kidney atrophy 1cm density left kidney) ORDERED/ADVISED: - Dexa Bone Density Study Rest, fluids, tylenol, good handwashing, no work until better. 07/21/2016 11:55:26 CHANGED Current Meds: atorvastatin 20 mg oral tablet PRESCRIBE: omeprazole 20 mg oral delayed release capsule, one po daily prn gerd, # 90, RF: 3. (Transmitted by Mayuri Metzger DO) PRESCRIBE: lisinopril 10 mg oral tablet, One tablet daily, # 90, RF: 3. (Transmitted by Mayuri Metzger DO) PRESCRIBE: atorvastatin 20 mg oral tablet, one po daily, # 90, RF: 3. (Tr ansmitted by Mayuri Metzger DO) DISCONTINUE: simvastatin 20 mg oral tablet one po daily, REASON: done switch to atorvastatin REMOVED from Current Meds: doxycycline hyclate 100 mg oral tablet, one po bid, # 14, RF: 0. (Transmitted by Mayuri Metzger DO) Date Prescribed: 05/29/2016 Plan printed and provided to patient: We will do a dedicated Ct of kidney in the spring/summer. PROVIDED HM: Aspirin in Women for Ischemic Stroke Given: longstanding PROVIDED HM: Tobacco use counseling and interventions: non- adults Given: NI PROVIDED HM: Screening for Depression in Adults Given: Neg ORDERED/ADVISED: - Dexa Bone Density Study ICD Codes (E78.4, N26.1) 07/21/2016 11:55:26 CHANGED Current Meds: atorvastatin 20 mg oral tablet PRESCRIBE: omeprazole 20 mg oral delayed release capsule, one po daily prn gerd, # 90, RF: 3. (Transmitted by Mayuri Metzger DO) PRESCRIBE: lisinopril 10 mg oral tablet, One tablet daily, # 90, RF: 3. (Transmitted by Mayuri Metzger DO) PRESCRIBE: atorvastatin 20 mg oral tablet, one po daily, # 90, RF: 3. (Tr ansmitted by Mayuri Metzger DO) DISCONTINUE: simvastatin 20 mg oral tablet one po daily, REASON: done switch to atorvastatin REMOVED from Current Meds: doxycycline hyclate 100 mg oral tablet, one po bid, # 14, RF: 0. (Transmitted by Mayuri Metzger DO) Date Prescribed: 05/29/2016 Plan printed and provided to patient: We will do a dedicated Ct of kidney in the spring/summer. PROVIDED HM: Aspirin in Women for Ischemic Stroke Given: longstanding PROVIDED HM: Tobacco use counseling and interventions: non- adults Given: NI PROVIDED HM: Screening for Depression in Adults Given: Neg ORDERED/ADVISED: - Dexa Bone Density Study ICD Codes (E78.4, N26.1) 07/21/2016 11:55:26 CHANGED Current Meds: atorvastatin 20 mg oral tablet PRESCRIBE: omeprazole 20 mg oral delayed release capsule, one po daily prn gerd, # 90, RF: 3. (Transmitted by Mayuri Metzger DO) PRESCRIBE: lisinopril 10 mg oral tablet, One tablet daily, # 90, RF: 3. (Transmitted by Mayuri Metzger DO) PRESCRIBE: atorvastatin 20 mg oral tablet, one po daily, # 90, RF: 3. (Tr ansmitted by Mayuri Metzger DO) DISCONTINUE: simvastatin 20 mg oral tablet one po daily, REASON: done switch to atorvastatin REMOVED from Current Meds: doxycycline hyclate 100 mg oral tablet, one po bid, # 14, RF: 0. (Transmitted by Mayuri Metzger DO) Date Prescribed: 05/29/2016 Plan printed and provided to patient: We will do a dedicated Ct of kidney in the spring/summer. PROVIDED HM: Aspirin in Women for Ischemic Stroke Given: longstanding PROVIDED HM: Tobacco use counseling and interventions: non- adults Given: NI PROVIDED HM: Screening for Depression in Adults Given: Neg ORDERED/ADVISED: - Dexa Bone Density Study ICD Codes (E78.4, N26.1) 05/29/2016 14:02:10 Plan printed and provided to patient: PRESCRIBE: doxycycline hyclate 100 mg oral tablet, one po bid, # 14, RF: 0. (Transmitted by Mayuri [place], [place]) ORDERED/ADVISED: - Lyme Titer ICD Codes (L30.9, T14.8) 05/29/2016 14:02:10 Plan printed and provided to patient: PRESCRIBE: doxycycline hyclate 100 mg oral tablet, one po bid, # 14, RF: 0. (Transmitted by [employer], [place]) ORDERED/ADVISED: - Lyme Titer ICD Codes (L30.9, T14.8) 05/29/2016 14:02:10 Plan printed and provided to patient: PRESCRIBE: doxycycline hyclate 100 mg oral tablet, one po bid, # 14, RF: 0. (Transmitted by [facility] [place]) ORDERED/ADVISED: - Lyme Titer ICD Codes (L30.9, T14.8) 12/29/2015 08:26:17 Plan printed and provided to patient: ORDERED/ADVISED: - Memo Webster (Gastroenterology) (she needs an EGD and colonoscopy) 25minftf ORDERED/ADVISED: - BMP (Basic Metabolic Panel) ICD Codes (R14.0, R10.9, N26.1) ORDERED/ADVISED: - Ernie Owen (Nephrology) (atrophic right kidney) PROVIDED HM: High Blood Pressure in Adults: Screening Given: 148/82 12/17/2015 11:48:27 ORDERED/ADVISED: - Memo Webster (Gastroenterology) (due for colonoscopy and having abdomenal pain) ORDERED/ADVISED: - CT - Abdomen ICD Codes (R14.0, R10.9) - CT - Pelvis (RLQ/ "it's my ovary") ICD Codes (R14.0, R10.9) ORDERED/ADVISED: - CT - Abdomen ICD Codes (R14.0, R10.9) - CT - Pelvis ICD Codes (R14.0, R10.9) 07/21/2015 08:27:41 Plan printed and provided to patient: PRESCRIBE: simvastatin 20 mg oral tablet, one po daily, # 90, RF: 3. (Transmitted by Mayuri Metzger DO) PRESCRIBE: omeprazole 20 mg oral delayed release capsule, one po daily prn gerd, # 90, RF: 3. (Transmitted by Mayuri Metzger DO) PRESCRIBE: lisinopril 10 mg oral tablet, One tablet daily, # 90, RF: 3. (Transmitted by Mayuri Metzger DO) REMOVED from Current Meds: doxycycline hyclate 100 mg oral tablet, one po bid, # 42, RF: 0. (Transmitted by Mayuri Metzger DO) Date Prescribed: 02/03/2015 PROVIDED: Patient Education (07/21/2015) RESOURCE(S) GIVEN: Form PROVIDED HM: Screening for Colorectal Cancer in Adults Aged 50-75 yrs Given: followed by Dr. Webster ORDERED/ADVISED: - CBC with diff (automated) ICD Codes (E78.4, K21.0, Z00.00, I10) - CMP (Complete Metabolic Panel) ICD Codes (E78.4, K21.0, Z00.00, I10) - Lipid Panel ICD Codes (E78.4, K21.0, Z00.00, I10) - TSH ICD Codes (E78.4, K21.0, Z00.00, I10) ORDERED/ADVISED: - Screening Mammogram - Blood Draw 02/03/2015 13:42:00 Plan printed and provided to patient: PRESCRIBE: doxycycline hyclate 100 mg oral tablet, one po bid, # 42, RF: 0. (Transmitted by Mayuri Metzger DO) 06/15/2014 08:24:58 Instructions printed and provided to patient: PRESCRIBE: simvastatin 20 mg oral tablet, one po daily, # 90, RF: 3. (Transmitted by Mayuri Metzger DO) PRESCRIBE: lisinopril 10 mg oral tablet, One tablet daily, # 90, RF: 3. (Transmitted by Mayuri Metzger DO) CHANGED Current Meds: simvastatin 20 mg oral tablet PROVIDED HM: Screening for Colorectal Cancer in Adults Aged 50-75 yrs Given: done in 2010 PROVIDED HM: Screening for High Blood Pressure in Adults Given: 136/88 PROVIDED HM: Screening for Lipid Disorders in Adults (Female) Given: LDL 95 in March 2013 PROVIDED HM: Counseling to Prevent Tobacco Use and Tobacco-Caused Disease in Adults and Women Given: NI PROVIDED HM: Mammography Given: done in March 2013 PROVIDED HM: Screening for Cervical Cancer in Women 30 years and Older Given: done in 2010 ORDERED/ADVISED: - CMP (Complete Metabolic Panel) ICD9 Codes (272.4, 401.9) PROVIDED VACCINATION: 1 dose of Fluvirin, 0.1 ml IM in the Left Deltoid (Mfg: N JASWINDER lot no. [id number], expires 01/03/2015) 03/17/2013 08:42:44 Instructions printed and provided to patient: PRESCRIBE: simvastatin 20 mg oral tablet, one po daily, # 90, RF: 3. (Transmitted by Mayuri Metzger DO) PRESCRIBE: omeprazole 20 mg oral delayed release capsule, one po daily prn gerd, # 90, RF: 3. (Transmitted by Mayuri Metzger DO) PRESCRIBE: lisinopril 10 mg oral tablet, One tablet daily, # 90, RF: 3. (Transmitted by Mayuri Metzger DO) PROVIDED HM: Screening for Lipid Disorders in Adults (Female) Given: LDL 104 a year ago PROVIDED HM: Screening for Colorectal Cancer in Adults Aged 50-75 yrs Given: up to date PROVIDED HM: Counseling to Prevent Tobacco Use and Tobacco-Caused Disease in Adults Given: NI ORDERED/ADVISED: - CBC with diff (automated) ICD9 Codes (272.4, 530.11, V70.0, 401.9) - CMP (Complete Metabolic Panel) ICD9 Codes (272.4, 530.11, V70.0, 401.9) - Lipid Panel ICD9 Codes (272.4, 530.11, V70.0, 401.9) ORDERED/ADVISED: - Screening Mammogram ICD9 Codes (272.4, 530.11, V70.0, 401.9) ORDERED/ADVISED: - Blood Draw ICD9 Codes (272.4, 530.11, V70.0, 401.9) 01/15/2012 09:50:37 Instructions printed and provided to patient: PRESCRIBE: omeprazole 20 mg oral delayed release capsule, one po daily prn gerd, # 90, RF: 3. (Transmitted by Mayuri Metzger DO) PRESCRIBE: simvastatin 20 mg oral tablet, one po daily, # 90, RF: 3. (Transmitted by Mayuri Metzger DO) PRESCRIBE: lisinopril 10 mg oral tablet, One tablet daily, # 90, RF: 3. (Tra nsmitted by Mayuri Metzger DO) Ordered/Advised: - CMP (Complete Metabolic Panel) ICD9 Codes (V72.31) - Lipid Panel ICD9 Codes (V72.31) - TSH ICD9 Codes (V72.31) - CBC with diff (automated) (Fatigue/hyperlipidemia/hypertension) ICD9 Codes (V72.31) PROVIDED HM: Aspirin for the Primary Prevention of Myocardial Infarction Given: Recommended. PROVIDED HM: Counseling to Prevent Tobacco Use and Tobacco-Caused Disease in Adults Given: NI PROVIDED HM: Screening for Colorectal Cancer in Adults Aged 50-75 yrs Given: up to date PROVIDED HM: Screening for High Blood Pressure in Adults Given: 126/70 PROVIDED HM: Screening for Lipid Disorders in Adults (Female) Given: LDL 90 a year ago. ORDERED/ADVISED: - Screening Mammogram ICD9 Codes (V16.49, 272.4, 401.9) 11/11/2010 11:02:42 50% of this visit was spent discussing the diagnosis, natural history of the disease, risks/benefits of and various treatment options. She is due for mammogram, colonoscopy, and fasting labs. DISCONTINUE: [id number] one po weekly on empty stomach in am, nothing to eat or drink x30 and dont lie down (she doesn't want this any more.) PRESCRIBE: simvastatin 20 mg oral tablet, one po daily, # 90, RF: 3. (transmitted to pharmacy) PRESCRIBE: lisinopril 10 mg oral tablet, One tablet Daily, # 90, RF: 3. (transmitted to pharmacy) DISCONTINUE: Arnaldo as directed DISCONTINUE: Arnaldo Dot 0.0375 as directed DISCONTINUE: Promethrium 100mg one po daily PRESCRIBE: ASA 81mg daily Ordered/Advised: - Screening Mammogram ICD9 Codes (V72.31) Ordered/Advised: - CMP (Complete Metabolic Panel) ICD9 Codes (V72.31) - Lipid Panel ICD9 Codes (V72.31) - TSH ICD9 Codes (V72.31) - CBC with diff (automated) (Fatigue/hyperlipidemia/hypertension) ICD9 Codes (V72.31) Ordered/Advised: - Memo Webster (Gastroenterology) (colonoscopy/hematochezia/family history of colon cancer) ICD9 Codes (V72.31) 10/08/2009 10:49:29 50% of this visit was spent discussing the diagnosis, natural history of the disease, risks/benefits of and various treatment options. Biphosphonates. PRESCRIBE: LISINOPRIL 10 MG, One tablet Daily, # 90, RF: 3. PRESCRIBE: Simvastatin 20mg, one po daily, # 90, RF: 3. DISCONTINUE: BONIVA TABLETS 150 MG One tablet po q month (not taking) PRESCRIBE: [id number], one po weekly on empty stomach in am, nothing to eat or drink x30 and dont lie down, # 4, RF: 5. Ordered/Advised: -Diagnostic right Mammogram ICD9 Codes (V16.49, E932.9, 272.4, 627.2, 401.9) 01/27/2009 13:09:55 PRESCRIBE: Arnaldo Jerome 0.0375, as directed, # 10, RF: NONE. PRESCRIBE: Simvastatin 20mg, one po daily, # 90, RF: 3. PRESCRIBE: LISINOPRIL 10 MG, One tablet Daily, # 90, RF: 3. 50% of this visits was spent discussing diagnoses and treatment options as well as R/B of various options. Cancer screening. ADVISED/ORDERED: Complete Blood Count (CBC)with diff Basic Metabolic Panel (BMP) Liver Function Tests (LFTs) Lipids VITAL SIGNS Encounter Height (in) We ight (lb) BMI (kg/m2) BP Sys (mmHg) BP Cox (mmHg) Heart Rate (/min) O2 % BldC Oximetry O2 % BldC Oximetry (on O2) Body Temp erature Respiratory Rate (/min) Head Circumf OFC by Tape measure 10/03/2019 09:01:54 64 2 36 40.5 148 68 83 98 -- -- -- -- 09/25/2018 09:30:24 64 2 40 41.2 140 86 75 96 -- -- -- -- 05/06/2018 10:12:56 64 2 36 40.5 164 100 85 98 -- -- -- -- 10/31/2017 11:26:07 64 2 35 40.3 140 92 94 98 -- 98.5 F -- -- 08/22/2017 11:22:11 64 2 35 40.3 140 90 90 98 -- -- -- -- 01/03/2017 15:06:20 64 2 36 40.5 136 80 89 98 -- 98.8 F -- -- 12/06/2016 14:29:38 64 2 38 40.9 120 70 74 97 -- 100.1 F -- -- 07/21/2016 11:55:26 64 2 40 41.2 136 80 85 99 -- -- -- -- 05/29/2016 14:02:10 -- -- -- 120 60 -- -- -- -- - - -- 12/29/2015 08:26:17 -- -- -- 148 84 89 98 -- -- -- -- 12/17/2015 11:48:27 64 2 35 40.3 140 82 81 98 -- -- -- -- 07/21/2015 08:27:41 64 2 35 40.3 140 90 79 98 -- -- -- -- 06/15/2014 08:24:58 64 2 34 40.3 136 88 90 98 -- -- -- -- 03/17/2013 08:42:44 64 2 28 39.2 130 80 79 -- -- -- - - -- 01/15/2012 09:50:37 64 2 27 39.0 126 80 87 -- -- -- - - -- 11/11/2010 11:02:42 64 2 32 39.7 110 72 83 -- -- -- - - -- 10/08/2009 10:49:29 64 2 29 39.2 132 80 84 -- -- -- - - -- 01/27/2009 13:09:55 64 2 29 39.2 112 86 71 -- -- -- - - -- GOALS No Goals Information. HEALTH CONCERNS No health concerns information is available. MENTAL STATUS No Mental Status information.
--- OUTSIDE RECORDS SUMMARY | 2021-06-08 06:47 | CCD | Continuity of Care Document ---
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 Allergies, Adverse Reactions, Alerts No allergy information available. Social History Assigned Sex Female Problems No problem information available. Medications No medication information available. Immunizations No Immunization Information Available Medical Equipment No Medical Equipment Information available Procedures Procedure Date Performed Status CHEST 1 VIEW May 04, 2021 completed ABD/PEL WITH IV CONTRAST April 072020 completed Relevant Diagnostic Tests and/or Laboratory Data Laboratory Results Test Date/Time Result Interpretation Reference Range Result Comment Performing Site White Blood Count May 04 2:30am 6.9 4.0-10.0 [facility], [address] [place] [address] 43364 Red Blood Count May 04, 2021 2:30a m 5.12 4.00-5.50 [facility], [address] [place] [address] 34116 Hemoglobin May 04, 2021 2:30am 15.2 12.0-16.0 [facility], [address] [place] [address] 76953 Hematocrit May 04, 2021 2:30am 44.8 36.0-48.8 [facility], [address] [place] [address] 15857 Mean Corpuscular Volume May 042020 2:30am 87.5 80-96 [facility], [address] [place] [address] 07195 Mean Corpuscular Hemoglobin Septembe r 2020 2:30am 29.7 27.0-31.0 [facility], [address] [facility] [address]999 Mean Corpuscular Hgb Concent Diff Se ptember 2020 2:30am 33.9 32.0-36.0 [facility], 4 [facility] 58357 Red Cell Distribution Width Aprembe r 2020 2:30am 13.6 10.0-14.5 [facility], 4 [facility] 81219 Platelet Count May 04, 2021 2:30am 192 172-450 [facility], [address] [place] [address] 33448 Mean Platelet Volume May 04, 2021 2:30am 12.7 9.0-13.0 [facility], [address] [place] [address] 03782 Granulocytes % (Auto) April 2:30am 66.3 50-80.0 [facility], [address] [place] [address] 42197 Immature Granulocytes % May 042020 2:30am 0.3 0.0-0.2 [facility], [address] [place] [address] 15020 Lymphocytes % May 04, 2021 2:30am 24.5 25.0-50.0 [facility], [address] [place] [address] 52366 Monocytes % May 04, 2021 2:30am 7.0 2.0-10.0 [facility], [address] [place] [address] 65065 Eosinophils % May 04, 2021 2:30am 1.2 0-5.0 [facility], [address] [place] [address] 79770 Basophils % May 04, 2021 2:30am 0.7 0.0-2.0 [facility], [address] [place] [address] 53602 Granulocytes # May 04, 2021 2:30am 4.6 2.0-8.00 [facility], 4 [facility] [address] Immature Granulocytes # May 042020 2:30am 0.0 0.0-0.2 [facility], [address] [facility] 25131 Lymphocytes # May 04, 2021 2:30am 1.7 1.0-5.0 [facility], [address] [place] [address] 50084 Monocytes # May 04, 2021 2:30am 0.5 0.10-1.20 [facility], [address] [place] [address] 54719 Eosinophils # May 04, 2021 2:30am 0.1 0.0-0.5 [facility], [address] [facility] 24582 Basophils # May 04, 2021 2:30am 0.1 0.0-0.2 [facility], [address] [place] [address] 23945 Prothrombin Time May 04 2:30am 10.1 9.1-11.6 [facility], [address] [place] [address] 30668 INR International Normalized Ratio S eptember 2020 2:30am 0.97 0.87-1.06 [facility], [address] [place], [place] [address] Partial Thromboplastin Time - Ellen S eptember 2020 2:30am 23.9 21.2-27.3 [facility], [address] [place] [address] 47304 Glucose Level May 04, 2021 2:30am 143 74-106 [facility], [address] [place] [address] 79425 Blood Urea Nitrogen May 04, 2021 2:30am 13 7-18 [facility], [address] [place] [address] 47104 Creatinine May 04, 2021 2:30am 1.09 0.6-1.0 [facility], [address] [place] [address] 63579 Sodium Level May 04, 2021 2:30am 142 136-145 [facility], [address] [place] [address] 71588 Potassium Level May 04, 2021 2:30a m 4.3 3.5-5.1 [facility], [address] [facility] [address] Chloride Level May 04, 2021 2:30am 105 98-107 [facility], [address] [facility] [address] Carbon Dioxide Level May 04, 2021 2:30am 28 21-32 [facility], [address] [facility] [address]858 Calcium Level May 04, 2021 2:30am 9.0 8.5-10.1 [facility], [address] [facility] 13615 Anion Gap May 04, 2021 2:30am 9.0 5-12 [facility], [address] [facility] [address]32 Estimated GFR (MDRD) May 04, 2021 2:30am 49 GFR IS CALCULATED IN mL/min/1.73m2 NORMAL FUNCTION: >90MILDLY DECREASED: 60-89MILDY TO MODERATELY DECREASED: 45-59 MODERATELY TO SEVERELY DECREASED: 30-44SEVERELY DECREASED: 15-29RENAL FAILURE: <15 [facility], [address] [facility] [address] Aspartate Amino Transf (AST/SGOT) Se ptember 2020 2:30am 16 15-37 [facility], 4 [facility] [address]40 Alanine Aminotransferase (ALT/SGPT) May 04, 2021 2:30am 29 12-78 [facility], [address] [facility] [address] Alkaline Phosphatase May 04, 2021 2:30am 78 46-116 [facility], [address] [facility] [address] Total Bilirubin May 04, 2021 2:30a m 0.5 0.2-1.0 [facility], [address] [place] [address] 56822 Total Protein May 04, 2021 2:30am 7.1 6.4-8.2 [facility], [address] [facility] [address] Albumin May 04, 2021 2:30am 3.5 3.4-5.0 [facility], [address] [facility] [address]52 Lipase May 04, 2021 2:30am 150 73-393 [facility], [address] [facility] [address]150 Troponin I High Sensitivity Septembe r 2020 6:15am 7.2 0-60.4 [facility], [address] [place] [phone] Magnesium Level May 04, 2021 2:30a m 1.9 1.8-2.4 [facility], [address] [place] [id number] Diagnostic Imaging Reports Report Dictated Date/Time Dictated By Status PS360 TEMPLATE May 04, 2021 3:42am NARENDRA MONTENEGRO Patient Name: EVELYNE PAULA Unit#: [id number] Rad#: [id number] : 50 Status: ESTELLE Gonzalez MD: DESTINY REYNOSO Room/Bed Sex: F Lactation Coordinator: Jacobo Valenzuela Date: 05/04/21 Report #: [id number] Signed - CHEST 1 VIEW ORIGINAL REPORT DATE OF EXAMINATION: 05/04/2021 6:41 EDT CHEST 1 VIEW HISTORY: No history provided TECHNIQUE: Single frontal radiograph of chest COMPARISON: 01/04/2017. FINDINGS: The lungs are clear. The heart is upper limits of normal in size. The pulmonary vasculature is normal in appearance. A hiatal hernia is present. IMPRESSION: No acute disease. Electronically signed in PS360 by: Narendra Montenegro M.D. 05/04/2021 7:44 EDT PS360 TEMPLATE May 04, 2021 4:31am RANDOLPH ARROYO Patient Name: EVELYNE PAULA Unit#: [id number] Rad#: [id number] : 50 Status: ESTELLE Gonzalez MD: SIMÓN AVELAR Room/Bed Sex: F Lactation Coordinator: GILMER RUTH Date: 05/04/21 Report #: [id number] Signed - ABD/PEL WITH IV CONTRAST ORIGINAL REPORT DATE OF EXAMINATION: 05/04/2021 7:36 EDT ABD/PEL WITH IV CONTRAST HISTORY: Pain TECHNIQUE: This CT exam was performed using the following dose reduction techniques: automated exposure control, adjustment of mA and/or kV according to the patient's size, and use of iterative reconstruction technique. Standard contiguous axial spiral imaging was obtained from the dome of the diaphragms through the symphysis pubis without oral contrast and without intravenous contrast administration and with coronal reformatting. FINDINGS: Lower thorax: Unremarkable ABDOMEN: There is a large hiatal hernia containing most of the gastric fundus and body. Liver spleen pancreas adrenals and the left kidney appear normal. Severe chronic atrophy of the right kidney is noted. There is no bowel obstruction or inflammatory bowel changes. There is no free air or any acute inflammatory process. PELVIS: Bladder: Partially opacified, grossly unremarkable Reproductive: Possible leiomyoma uterine fundus. This can be confirmed by sonography No free air IMPRESSION: Large hiatal hernia. Severe atrophy of the right kidney. Possible leiomyomas of the uterine fundus can be confirmed by sonography. Electronically signed in PS360 by: Randolph Arroyo M.D. 05/04/2021 8:34 EDT Vital Signs No vital signs result information available. Insurance Providers Guarantor EVELYNE PAULA Address [address] [place] [address] Contact Info. Home Phone: Payer Policy Id Coverage Id Subscriber's Name Subscriber Id Effective Date Expiration Date [employer] MEDICARE [id number] EVELYNE PAULA 2020 2021 Encounters Encounter Location(s) Ar rival/Admit Date Discharge/Depart Date Provider(s) Departed [facility] May 04, 2021 2:11am May 04, 2021 7:42am DESTINY REYNOSO Functional Status No Functional Status information available Mental Status No Mental Status Information Available Assessments No Assessments Information Available Goals Goals may be documented in an alternate section.
--- OUTSIDE RECORDS SUMMARY | 2021-06-08 06:47 | CCD ---
Author Author [facility] Organization [facility] Address Unknown Phone Unavailable Care Team Providers Care Marketing Administrator Name Role Phone Marline Webster MD Unavailable Unavailable Marline Webster MD Unavailable Unavailable Marline Webster MD Unavailable Unavailable Marline Webster MD Unavailable Unavailable Marline Webster MD Unavailable Unavailable Marline Webster MD Unavailable Unavailable Marline Webster MD Unavailable Unavailable Marline Webster MD Unavailable Unavailable Marline Webster MD Unavailable Unavailable Marline Webster MD Unavailable Unavailable Marline Webster MD Unavailable Unavailable Marline Webster MD Unavailable Unavailable Marline Webster MD Unavailable Unavailable Marline Webster MD Unavailable Unavailable Marline Webster MD Unavailable Unavailable Marline Webster MD Unavailable Unavailable Marline Webster MD Unavailable Unavailable Marline Webster MD Unavailable Unavailable Marline Webster MD Unavailable Unavailable Marline Webster MD Unavailable Unavailable Marline Webster MD Unavailable Unavailable Marline Webster MD Unavailable Unavailable Marline Webster MD Unavailable Unavailable Marline Webster MD Unavailable Unavailable Marline Webster MD Unavailable Unavailable Marline Webster MD Unavailable Unavailable Marline Webster MD Unavailable Unavailable Marline Webster MD Unavailable Unavailable Marline Webster MD Unavailable Unavailable Eleanor, S Memo MD Unavailable Unavailable Eleanor, S Memo MD Unavailable Unavailable Eleanor, S Memo MD Unavailable Unavailable Eleanor, S Memo MD Unavailable Unavailable Eleanor, S Memo MD Unavailable Unavailable Eleanor, S Memo MD Unavailable Unavailable Eleanor, S Memo MD Unavailable Unavailable Eleanor, S Memo MD Unavailable Unavailable Eleanor, S Memo MD Unavailable Unavailable Eleanor, S Memo MD Unavailable Unavailable Eleanor, S Memo MD Unavailable Unavailable Eleanor, S Memo MD Unavailable Unavailable Eleanor, S Memo MD Unavailable Unavailable Eleanor, S Memo MD Unavailable Unavailable Eleanor, S Memo MD Unavailable Unavailable Eleanor, S Memo MD Unavailable Unavailable Eleanor, S Memo MD Unavailable Unavailable Eleanor, S Memo MD Unavailable Unavailable Eleanor, S Memo MD Unavailable Unavailable Eleanor, S Memo MD Unavailable Unavailable Eleanor, S Memo MD Unavailable Unavailable Lucio Billy PA-C Unavailable Lucio, Billy PA-C Unavailable Lucio Billy PA-C Unavailable Lucio Billy PA-C Unavailable Lucio, Billy PA-C Unavailable ALEXIS, A KAYLEEN DO Unavailable Unavailable ALEXIS, A KAYLEEN DO Unavailable Unavailable ALEXIS, A KAYLEEN DO Unavailable Unavailable ALEXIS, A KAYLEEN DO Unavailable Unavailable ALEXIS, A KAYLEEN DO Unavailable Unavailable ALEXIS, A KAYLEEN DO Unavailable Unavailable ALEXIS, A KAYLEEN DO Unavailable Unavailable ALEXIS, A KAYLEEN DO Unavailable Unavailable ALEXIS, A KAYLEEN DO Unavailable Unavailable ALEXIS, A KAYLEEN DO Unavailable Unavailable ALEXIS, A KAYLEEN DO Unavailable Unavailable ALEXIS, A KAYLEEN DO Unavailable Unavailable ALEXIS, A KAYLEEN DO Unavailable Unavailable ALEXIS, A KAYLEEN DO Unavailable Unavailable ALEXIS, A KAYLEEN DO Unavailable Unavailable ALEXIS, A KAYLEEN DO Unavailable Unavailable ALEXIS, A KAYLEEN DO Unavailable Unavailable ALEXIS, A KAYLEEN DO Unavailable Unavailable ALEXIS, A KAYLEEN DO Unavailable Unavailable ALEXIS, A KAYLEEN DO Unavailable Unavailable ALEXIS, A KAYLEEN DO Unavailable Unavailable ALEXIS, A KAYLEEN DO Unavailable Unavailable ALEXIS, A KAYLEEN DO Unavailable Unavailable ALEXIS, A KAYLEEN DO Unavailable Unavailable ALEXIS, A KAYLEEN DO Unavailable Unavailable ALEXIS, A KAYLEEN DO Unavailable Unavailable ALEXIS, A KAYLEEN DO Unavailable Unavailable ALEXIS, A KAYLEEN DO Unavailable Unavailable ALEXIS, A KAYLEEN DO Unavailable Unavailable ALEXIS, A KAYLEEN DO Unavailable Unavailable ALEXIS, A KAYLEEN DO Unavailable Unavailable ALEXIS, A KAYLEEN DO Unavailable Unavailable ALEXIS, A KAYLEEN DO Unavailable Unavailable ALEXIS, A KAYLEEN DO Unavailable Unavailable ALEXIS, A KAYLEEN DO Unavailable Unavailable ALEXIS, A KAYLEEN DO Unavailable Unavailable ALEXIS, A KAYLEEN DO Unavailable Unavailable ALEXIS, A KAYLEEN DO Unavailable Unavailable ALEXIS, A KAYLEEN DO Unavailable Unavailable ALEXIS, A KAYLEEN DO Unavailable Unavailable ALEXIS, A KAYLEEN DO Unavailable Unavailable ALEXIS, A KAYLEEN DO Unavailable Unavailable ALEXIS, A KAYLEEN DO Unavailable Unavailable ALEXIS, A KAYLEEN DO Unavailable Unavailable ALEXIS, A KAYLEEN DO Unavailable Unavailable ALEXIS, A KAYLEEN DO Unavailable Unavailable ALEXIS, A KAYLEEN DO Unavailable Unavailable ALEXIS, A KAYLEEN DO Unavailable Unavailable ALEXIS, A KAYLEEN DO Unavailable Unavailable ALEXIS, A KAYLEEN DO Unavailable Unavailable ALEXIS, A KAYLEEN DO Unavailable Unavailable ALEXIS, A KAYLEEN DO Unavailable Unavailable ALEXIS, A KAYLEEN DO Unavailable Unavailable ALEXIS, A KAYLEEN DO Unavailable Unavailable ALEXIS, A KAYLEEN DO Unavailable Unavailable ALEXIS, A KAYLEEN DO Unavailable Unavailable ALEXIS, A KAYLEEN DO Unavailable Unavailable ALEXIS, A KAYLEEN DO Unavailable Unavailable ALEXIS, A KAYLEEN DO Unavailable Unavailable ALEXIS, A KAYLEEN DO Unavailable Unavailable ALEXIS, A KAYLEEN DO Unavailable Unavailable ALEXIS, A KAYLEEN DO Unavailable Unavailable ALEXIS, A KAYLEEN DO Unavailable Unavailable ALEXIS, A KAYLEEN DO Unavailable Unavailable Re-disclosure Warning The records that you are about to access may contain information from federally-assisted alcohol or drug abuse programs. If such information is present, then the following federally mandated warning applies: This information has been disclosed to you from records protected by federal confidentiality rules (42 CFR part 2). The federal rules prohibit you from making any further disclosure of this information unless further disclosure is expressly permitted by the written consent of the person to whom it pertains or as otherwise permitted by 42 CFR part 2. A general authorization for the release of medical or other information is NOT sufficient for this purpose. The Federal rules restrict any use of the information to criminally investigate or prosecute any alcohol or drug abuse patient.The records that you are about to access may contain highly sensitive health information, the redisclosure of which is protected by Article 27-F of the [place] Public Health law. If you continue you may have access to information: Regarding HIV / AIDS; Provided by facilities licensed or operated by the [place] Office of Mental Health; or Provided by the [place] Office for People With Developmental Disabilities. If such information is present, then the following [place] mandated warning applies: This information has been disclosed to you from confidential records which are protected by state law. State law prohibits you from making any further disclosure of this information without the specific written consent of the person to whom it pertains, or as otherwise permitted by law. Any unauthorized further disclosure in violation of state law may result in a fine or detention sentence or both. A general authorization for the release of medical or other information is NOT sufficient authorization for further disc losure. Family History Family Member Name Family Member Gender Family Member Status Date o f Status Description Data Source(s) Unknown Female Problem [facility] ([facility]) Encounters Encounter Providers Location Date Indications Data Source(s ) Emergency Attender: Billy PRAKASHCReferrer: KAYLEEN ESPINOZA DO EMERGENCY ROOM-ER 05/04/2021 06:40:00 AM EDT - 05/04/2021 11:42:00 AM [facility] Patient discharged. Outpatient Attender: Memo Webster MD Main Office 01/27/2021 11:15:00 AM EDT [facility] ([facility] Outpatient Attender: KAYLEEN Ramirezer: KAYLEEN ESPINOZA DO EMERGENCY ROOM-LABOTHPROV 11/02/2020 07:40:00 AM EDT - 11/02/2020 07:40:00 AM [facility] Outpatient Attender: KAYLEEN Epps: KAYLEEN ESPINOZA DO 05/20/2020 09:30:00 AM [facility] Outpatient Attender: KAYLEEN Epps: KAYLEEN ESPINOZA DO EMERGENCY ROOM-LABOTHPROV 04/19/2020 07:40:00 AM EDT - 04/19/2020 07:40:00 AM [facility] Outpatient Attender: KAYLEEN ESPINOZA DO 2017 09:02:00 AM EDT - 11/16/2017 09:02:00 AM [facility] Outpatient Attender: KAYLEEN ESPINOZA DO EMERGENCY ROOM-LABOTHP ROV 01/04/2017 07:33:00 AM EDT - 01/04/2017 07:33:00 AM EDT [facility] Outpatient Attender: KAYLEEN ESPINOZA DO 12/29/2016 12:00:00 [facility] Outpatient Attender: KAYLEEN ESPINOZA DO 12/30/2015 01:15:00 [facility] Immunizations Vaccine Date Status Description Data Source(s) COVID-19 VACCINE Moderna 10/19/2020 12:00:00 AM EDT completed [facility] Vaccine Series Complete: YESThis Data wa s Submitted to [facility] Via [employer]. COVID-19 VACCINE, MRNA-1273, LNP-S (MODERNA)/PF 10/19/2020 1 2:00:00 AM EDT completed [facility] COVID-19 VACCINE Moderna 09/21/2020 12:00:00 AM EST completed [facility] Vaccine Series Complete: NOThis Data was Submitted to [facility] Via [employer]. COVID-19 VACCINE, MRNA-1273, LNP-S (MODERNA)/PF 09/21/2020 1 2:00:00 AM EST completed [facility] INFLUENZA VACCINE QUADRIVALENT 2019- (65 YR UP)/MF59 C.1/PF 06/03/2020 12:00:00 AM EDT completed [facility] Medications Medication Brand Name Start Date Product Form Dose Route Admi nistrative Instructions Pharmacy Instructions Status Indications Reaction Description Data Source(s) 1.479-0.188- 0.225 gram 03/02/2021 12:00:00 AM EDT tablet 24 TAKE DIRECTED FOR BOWEL PREP TAKE DIRECTED FOR BOWEL PREP SOLD: 03/02/2021 [facility] Sutab Sutab 01/27/2021 12:00:00 AM EDT active [facility] ([facility]) 20 mg 12/07/2020 12:00:00 AM EDT capsule,delayed release (DR/EC) 90 TAKE ONE CAPSULE BY MOUTH EVERY DAY NEEDED FOR GERD TAKE ONE CAPSULE BY MOUTH EVERY DAY NEEDED FOR GERD SOLD: 03/26/2021 [facility] 20 mg 12/07/2020 12:00:00 AM EDT capsule,delayed release (DR/EC) 90 TAKE ONE CAPSULE BY MOUTH EVERY DAY NEEDED FOR GERD TAKE ONE CAPSULE BY MOUTH EVERY DAY NEEDED FOR GERD SOLD: 12/08/2020 [facility] 20 mg 10/18/2020 12:00:00 AM EDT tablet 90 TAKE ONE TABLET BY MOUTH EVERY DAY TAKE ONE TABLET BY MOUTH EVERY DAY SOLD: 02/11/2021 [facility] 20 mg 10/18/2020 12:00:00 AM EDT tablet 90 TAKE ONE TABLET BY MOUTH EVERY DAY TAKE ONE TABLET BY MOUTH EVERY DAY SOLD: 05/12/2021 [facility] 20 mg 10/18/2020 12:00:00 AM EDT tablet 90 TAKE ONE TABLET BY MOUTH EVERY DAY TAKE ONE TABLET BY MOUTH EVERY DAY SOLD: 10/19/2020 [facility] 20 mg 10/20/2019 12:00:00 AM EDT tablet 90 TAKE ONE TABLET BY MOUTH EVERY DAY TAKE ONE TABLET BY MOUTH EVERY DAY SOLD: 08/13/2020 [facility] 20 mg 10/20/2019 12:00:00 AM EDT tablet 90 TAKE ONE TABLET BY MOUTH EVERY DAY TAKE ONE TABLET BY MOUTH EVERY DAY SOLD: 05/05/2020 [facility] 20 mg 10/04/2019 12:00:00 AM EST capsule,delayed release (DR/EC) 90 TAKE ONE CAPSULE BY MOUTH EVERY DAY NEEDED TAKE ONE CAPSULE BY MOUTH EVERY DAY NEEDED SOLD: 08/04/2020 [facility] Insurance Providers Payer name Policy type / Coverage type Policy ID Covered republican ID Covered republican's relationship to fonseca Policy Fonseca Plan Information [place] PPO 302/[id number] SP [id number] [facility] 1 [id number] MEDICARE COMPLETE [id number] SP [id number] [facility] MEDICARE [id number] S [id number] MEDICARE COMPLETE [id number] SP [id number] MEDICARE COMPLETE [id number] SP [id number] [facility] MEDICARE [id number] S [id number] MEDICARE COMPLETE [id number] SP [id number] [facility] MEDICARE [id number] S [id number] [facility] MEDICARE [id number] S [id number] [facility] MEDICARE [id number] S [id number] [facility] MEDICARE [id number] S [id number] [facility] MEDICARE [id number] S [id number] [facility] MEDICARE [id number] S [id number] [facility] [id number] Self MEDICARE COMPLETE [id number] SP [id number] [facility] [id number] SP [id number] [facility] [id number] SP [id number] SELF PAY UNAVAILABLE UNAVAILA BLE SELF PAY ONLY [id number] SP [id number] [facility] MEDICARE MCRAD[place]ANT [id number] S [id number] MEDICARE COMPLETE-UHC O [id number] S [id number] Problems, Conditions, and Diagnoses Code Display Name Description Problem Type Effective Dates Data Source(s) Z79.899 Other fdc (current) drug therapy O THER LONG-TERM (CURRENT) DRUG THERAPY Diagnosis 05/04/2021 06:40:00 AM [facility] l K46.9 Unspecified abdominal hernia without obs truction or gangrene UNSPECIFIED ABDOMINAL HERNIA WITHOUT OBSTRUCTION O Diagnosis 05/04/2021 06:40:00 A M [facility] I10 Essential (primary) hypertension ESSENTIAL (PRIMARY) H YPERTENSION Diagnosis 05/04/2021 06:40:00 AM [facility] R07.89 Other chest pain OTHER CHEST PAIN Diagnosis 05/04/2021 06 :40:00 AM [facility] K21.00 GASTRO-ESOPHAGEAL REFLUX DIS WITH ESOPHA GITIS, WIT GASTRO-ESOPHAGEAL REFLUX DIS WITH ESOPHAGITIS, WIT Diagnosis 11/02/2020 07:40:00 AM [facility] Z00.00 Encounter for general adult medical examination without abnormal findings ENCNTR FOR GENERAL ADULT MEDICAL EXAM W/ Diagnosis 021 07:40:00 AM [facility] K21.01 GASTRO-ESOPHAGEAL REFLUX DIS WITH ESOPHA GASTRO-ESOPHAGEAL REFLUX DIS WITH ESOPHA Diagnosis 11/02/2020 07:40:[address] [facility] E78.49 OTHER HYPERLIPIDEMIA OTHER HYPERLIPIDEMIA Diagnosis 11/02/2020 07:40:00 AM [facility] R53.81 Other malaise OTHER MALAISE Diagnosis 11/02/2020 07:40:00 AM [facility] R19.5 Other fecal abnormalities OTHER FECAL ABNORMALITIES Di agnosis 11/02/2020 07:40:00 AM [facility] Z12.31 Encounter for screening mammogram for ma lignant neoplasm of breast ENCNTR SCREEN MAMMOGRAM FOR MALIGNANT NEOPLASM OF BREAST Diagnosis 05/06 09:30:00 AM [facility] K21.0 Gastro-esophageal reflux disease with es ophagitis GASTRO-ESOPHAGEAL REFLUX DISEASE WITH ES Diagnosis 04/19/2020 07:40:00 AM [facility] R73.9 Hyperglycemia, unspecified HYPERGLYCEMIA, UNSPECIFIED Diagnosis 04/19/2020 07:40:00 AM [facility] Z12.39 Encounter for other screening for malign ant neoplasm of breast ENCOUNTER FOR OTH SCREENING FOR MALIGNAN Diagnosis 04/19/2020 07:40:00 AM EDT [facility] Surgeries/Procedures Procedure Description Date Indications Data Source(s) OFFICE OUTPATIENT NEW 30 MINUTES 01/27/2021 12:00:00 A M EDT [facility] ([facility]) Results ID Date Data Source [id number] 06/03/2021 09:30:00 AM EDT [facility] Name Value Range Interpretation Code Description Data Corrina rce(s) Supporting Document(s) SARS-CoV-2 (COVID-19) RNA [Presence] in Respiratory specimen by TYRON with probe detection Not Detected [facility] This lab was ordered by [facility] and reported by in[facility]. ID Date Data Source [id number] 05/16/2021 07:40:00 AM [facility] DATE OF EXAMINATION: 05/04/2021 7:36 EDT ABD/PEL WITH IV CONTRAST HISTORY: Pain TECHNIQUE: This CT exam was performed using the following dose reduction techniques:automated exposure control, adjustment of mA and/or kV according to thepatient's size, and use of iterative reconstruction technique. Standard contiguous axial spiral imaging was obtained from the dome of thediaphragms through the symphysis pubis without oral contrast and withoutintravenous contrast administration and with coronal reformatting. FINDINGS: Lower thorax: Unremarkable ABDOMEN: There is a large hiatal hernia containing most of the gastric fundus and body.Liver spleen pancreas adrenals and the left kidney appear normal. Severe chronicatrophy of the right kidney is noted. There is no bowel obstruction orinflammatory bowel changes. There is no free air or any acute inflammatoryprocess. PELVIS: Bladder: Partially opacified, grossly unremarkableReproductive: Possible leiomyoma uterine fundus. This can be confirmed bysonography No free air IMPRESSION: Large hiatal hernia. Severe atrophy of the right kidney. Possible leiomyomas of the uterine fundus can be confirmed by sonography. Electronically signed in PS360 by: Randolph Arroyo M.D. 05/04/2021 8:34 EDT ADDENDUM: 05/16/21 0739 Study was performed with intravenous contrast. Electronically signed in PS[facility] by: Randolph Arroyo M.D. 05/16/2021 7:33 EDT Name Value Range Interpretation Code Description Data Corrina rce(s) Supporting Document(s) ID Date Data Source [id number] 05/05/2021 09:47:00 AM EDT [facility] Patient: EVELYNE PAULA Observation Report - Physicians/Mid Levels [facility].VisitID: [id number] [place] [address] [phone], FRegistratr[facility] Date/Time: 05/04/2021 06:11 Weight:104.3 kg (S). Height/Length:64 inches (S). BMI:39.5 PAST HISTORYProblems:Hypertension.Hiatal hernia (disorder). Additional Surgeries:Adenoidectomy.Tonsillectomy. Medications:Lisinopril Oral 20 mg, daily, last dose yest.Omeprazole Oral 20 mg, daily, last dose yest. Allergies:No Known Drug Allergy. FAMILY HISTORYNo significant family medical history. (Electronically signed by Billy Valdes PA-C 05/05/2021 09:44) Weight:104.3 kg (S). Height/Length:64 inches (S). BMI:39.5 PAST HISTORYMedications:Lisinopril Oral 20 mg, daily, last dose yest.Omeprazole Oral 20 mg, daily, last dose yest. Allergies:No Known Drug Allergy. FAMILY HISTORYNo significant family medical history. (Electronically signed by Lizzie Grant 05/04/2021 19:42) Name Value Range Interpretation Code Description Data Corrina rce(s) Supporting Document(s) ID Date Data Source [id number] 05/04/2021 10:56:00 AM EDT [facility] TSYSORDER [id number] Name Value Range Interpretation Code Description Data Corrina rce(s) Supporting Document(s) TROPONIN-HIGH SENSITIVITY 7.2 ng/L 0-60.4 [facility] ID Date Data Source [id number] 05/04/2021 07:49:00 AM EDT [facility] DATE OF EXAMINATION: 05/04/2021 6:41 EDT CHEST 1 VIEW HISTORY: No history provided TECHNIQUE: Single frontal radiograph of chest COMPARISON: 01/04/2017. FINDINGS: The lungs are clear. The heart is upper limits of normal in size. The pulmonaryvasculature is normal in appearance. A hiatal hernia is present. IMPRESSION: No acute disease. Electronically signed in PS360 by: Mikel Montenegro M.D. 05/04/2021 7:44 EDT Name Value Range Interpretation Code Description Data Corrina rce(s) Supporting Document(s) ID Date Data Source [id number] 05/04/2021 07:30:00 AM EDT [facility] TSYSORDER [id number] Name Value Range Interpretation Code Description Data Corrina rce(s) Supporting Document(s) LIPASE 150 U/L 73-393 [facility] ID Date Data Source [id number] 05/04/2021 07:21:00 AM EDT [facility] TSYSORDER [id number] Name Value Range Interpretation Code Description Data Corrina rce(s) Supporting Document(s) MAGNESIUM 1.9 mg/dL 1.8-2.4 [facility] ID Date Data Source [id number] 05/04/2021 07:21:00 AM EDT [facility] TSYSORDER [id number] Name Value Range Interpretation Code Description Data Corrina rce(s) Supporting Document(s) TROPONIN-HIGH SENSITIVITY 6.3 ng/L 0-60.4 [facility] ID Date Data Source [id number] 05/04/2021 07:21:00 AM EDT [facility] TSYSORDER [id number] Name Value Range Interpretation Code Description Data Corrina rce(s) Supporting Document(s) GLUCOSE 143 mg/dL 74-106 [facility] BLOOD UREA NITROGEN 13 mg/dL 7-18 [facility] ital CREATININE 1.09 mg/dL 0.6-1.0 H [facility] SODIUM 142 mmol/L 136-145 [facility] POTASSIUM 4.3 mmol/L 3.5-5.1 [facility] CHLORIDE 105 mmol/L 98-107 [facility] CO2 28 mmol/L 21-32 [facility] CALCIUM 9.0 mg/dL 8.5-10.1 [facility] ANION GAP 9.0 mmol/L 5-12 [facility] GLOMERULAR FILTRATION RATE 49 mL/min [facility] GFR IS CALCULATED IN mL/min/1.73m2 SEAN L FUNCTION: >90MILDLY DECREASED: 60-89MILDY TO MODERATELY DECREASED: 45-59 MODERATELY TO SEVERELY DECREASED: 30-44SEVERELY DECREASED: 15-29RENAL FAILURE: <15 AST 16 U/L 15-37 [facility] ALT 29 U/L 12-78 [facility] ALKALINE PHOSPHATASE 78 U/L 46-116 [facility] pital TOTAL BILIRUBIN 0.5 mg/dL 0.2-1.0 [facility] TOTAL PROTEIN 7.1 g/dl 6.4-8.2 [facility] ALBUMIN 3.5 gm/dL 3.4-5.0 [facility] ID Date Data Source [id number] 05/04/2021 07:13:00 AM EDT [facility] TSYSORDER [id number] Name Value Range Interpretation Code Description Data Corrina rce(s) Supporting Document(s) PARTIAL THROMBOPLASTIN TIME 23.9 SECONDS 21.2-27.3 [facility] ID Date Data Source [id number] 05/04/2021 07:13:00 AM EDT [facility] l TSYSORDER [id number] Name Value Range Interpretation Code Description Data Corrina rce(s) Supporting Document(s) PROTHROMBIN TIME (PATIENT) 10.1 SECONDS 9.1-11.6 [facility] INR 0.97 0.87-1.06 [facility] ID Date Data Source [id number] 05/04/2021 07:03:00 AM EDT [facility] l TSYSORDER [id number] Name Value Range Interpretation Code Description Data Corrina rce(s) Supporting Document(s) WHITE BLOOD COUNT 6.9 K[facility]3 4.0-10.0 [facility]LO[facility] 5.12 M/mm3 4.00-5.50 [facility] HEMOGLOBIN 15.2 gm/dL 12.0-16.0 [facility] HEMATOCRIT 44.8 % 36.0-48.8 [facility] MEAN CELL VOLUME 87.5 fl 80-96 [facility] MEAN CORPUSCULAR HEMOGLOBIN 29.7 pg 27.0-31.0 [facility] MEAN CORPUSCULAR HGB CONC 33.9 g/dl 32.0-36.0 [facility] RED CELL DISTRIBUTION WIDTH 13.6 % 10.0-14.5 [facility] PLATELET COUNT 192 K/mm3 172-450 [facility] MEAN PLATELET VOLUME 12.7 fl 9.0-13.0 [facility] pital GRAN % 66.3 % 50-80.0 [facility] IG% 0.3 % 0.0-0.2 H [facility] LYMPH % 24.5 % 25.0-50.0 L [facility] MONO % 7.0 % 2.0-10.0 [facility] EOS % 1.2 % 0-5.0 [facility] BASO % 0.7 % 0.0-2.0 [facility] GRAN # 4.6 K/mm3 2.0-8.00 [facility] IG# 0.0 K/mm3 0.0-0.2 [facility] LYMPH # 1.7 K/mm3 1.0-5.0 [facility] MONO # 0.5 K/mm3 0.10-1.20 [facility] EOS # 0.1 K/mm3 0.0-0.5 [facility] BASO # 0.1 K/mm3 0.0-0.2 [facility] ID Date Data Source [id number] 03/04/2021 11:00:00 AM EDT [facility] Name Value Range Interpretation Code Description Data Corrina rce(s) Supporting Document(s) SARS-CoV-2 (COVID-19) RNA [Presence] in Respiratory specimen by TYRON with probe detection Positive for 2019-nCoV [facility] This lab was ordered by [facility] and reported by in2apps. ID Date Data Source [id number] 11/02/2020 09:28:00 AM EDT [facility] Name Value Range Interpretation Code Description Data Corrina rce(s) Supporting Document(s) TSH 2.160 uIU/mL 0.360-3.740 [facility] ID Date Data Source [id number] 11/02/2020 09:03:00 AM EDT [facility] l Name Value Range Interpretation Code Description Data Corrina rce(s) Supporting Document(s) CHOLESTEROL 229 mg/dL 0-200 [facility] TRIGLYCERIDES 180 mg/dL 0-150 H [facility] LDL CHOLESTEROL 147 mg/dL 0-100 [facility] [facility] HDL CHOLESTEROL 46 mg/dL 40-60 [facility] CHOL/HDL RATIO 5.0 0.0-5.0 [facility] ID Date Data Source [id number] 08/30/2020 12:00:00 AM EST [facility] Name Value Range Interpretation Code Description Data Corrina rce(s) Supporting Document(s) SARS-CoV-2 (COVID-19) RNA [Presence] in Respiratory specimen by TYRON with probe detection Not [facility]ed [facility] This lab was ordered by [facility] and reported by [employer]. ID Date Data Source [id number] 05/20/2020 04:16:00 PM EDT [facility] l DATE OF EXAMINATION: 05/20/2020 9:24 EDT MAMMO SCREEN BILAT WITH CAD HISTORY: Screening Based on the personal and family history information your patient supplied atthe time of imaging, her lifetime risk of breast cancer estimated date by theTyrer-Cuzick model is 5.7%. If anything changes in the personal and/or familyhistory this percentage could increase or decrease. Currently, NCCN and ACSrecommended adjunctive breast MRI screening starting at age 30 for women with a> 20-25% lifetime risk of developing breast cancer. Comparison is made to prior study dated 12/30/2015. 2-D bilateral digital mammogram in the CC and MLO planes were performed withsupplemental 3-D tomosynthesis of both breasts. The images were analyzed through the latest version of the [employer] computer lab assistant ddiagnosis system. The patient states that her last clinical breast examination was 3 months ago. Craniocaudal and oblique lateral views of the breasts were obtained. There arescattered fibroglandular densities.. There is no dominant mass, suspiciousclustered calcification, or architectural distortion. IMPRESSION: No mammographic evidence of malignancy. BiRAD 1 - Negative, Routine Yearly Mammographic Follow-up Recommended. 10-15% of cancers are not identified by mammography. This usually occurs whenthe mass is of the same radiographic density as the surrounding breast tissue,emphasizing the importance of breast self examination (BSE) and physicalexamination. A normal mammogram should not delay biopsy if a suspicious mass orabnormal findings are present upon physical examination. Electronically signed in [id number] by: Jorje May M.D. 05/20/2020 16:10 EDT Name Value Range Interpretation Code Description Data Corrina rce(s) Supporting Document(s) ID Date Data Source [id number] 04/19/2020 08:34:00 AM [facility] Name Value Range Interpretation Code Description Data Corrina rce(s) Supporting Document(s) TSH 1.86 uIU/mL 0.36-3.74 [facility] ID Date Data Source [id number] 04/19/2020 08:34:00 AM [facility] Name Value Range Interpretation Code Description Data Corrina rce(s) Supporting Document(s) CHOLESTEROL 231 mg/dL 0-200 H [facility] TRIGLYCERIDES 140 mg/dL 0-150 [facility] LDL CHOLESTEROL 159 mg/dL 0-100 H [facility] HDL CHOLESTEROL 44 mg/dL 40-60 [facility] CHOL/HDL RATIO 5.3 0.0-5.0 H [facility] ID Date Data Source [id number] 04/19/2020 08:34:00 AM [facility] Name Value Range Interpretation Code Description Data Corrina rce(s) Supporting Document(s) GLUCOSE 105 mg/dL 74-106 [facility] BLOOD UREA NITROGEN 24 mg/dL 7-18 [facility] ital CREATININE 1.0 mg/dL 0.6-1.0 [facility] SODIUM 142 mmol/L 136-145 [facility] POTASSIUM 4.3 mmol/L 3.5-5.1 [facility] CHLORIDE 106 mmol/L 98-107 [facility] CO2 29 mmol/L 21-32 [facility] CALCIUM 8.7 mg/dL 8.5-10.1 [facility] ANION GAP 7.0 mmol/L 5-12 [facility] GLOMERULAR FILTRATION RATE 55 mL/min [facility] GFR IS CALCULATED IN mL/min/1.73m2 SEAN L FUNCTION: >90MILDLY DECREASED: 60-89MILDY TO MODERATELY DECREASED: 45-59 MODERATELY TO SEVERELY DECREASED: 30-44SEVERELY DECREASED: 15-29RENAL FAILURE: <15 AST 18 U/L 15-37 [facility] ALT 24 U/L 12-78 [facility] ALKALINE PHOSPHATASE 79 U/L 46-116 [facility] TOTAL BILIRUBIN 0.6 mg/dL 0.2-1.0 [facility] TOTAL PROTEIN 6.5 g/dl 6.4-8.2 [facility] ALBUMIN 3.5 gm/dL 3.4-5.0 [facility] ID Date Data Source [id number] 04/19/2020 08:00:00 AM EDT [facility] Name Value Range Interpretation Code Description Data Corrina rce(s) Supporting Document(s) WHITE BLOOD COUNT 5.2 K/mm3 4.0-10.0 [facility] al RED BLOOD COUNT 4.89 M/mm3 4.00-5.50 [facility] HEMOGLOBIN 14.4 gm/dL 12.0-16.0 [facility] HEMATOCRIT 43.3 % 36.0-48.8 [facility] MEAN CELL VOLUME 88.5 fl 80-96 [facility] MEAN CORPUSCULAR HEMOGLOBIN 29.4 pg 27.0-31.0 [facility] MEAN CORPUSCULAR HGB CONC 33.3 g/dl 32.0-36.0 [facility] RED CELL DISTRIBUTION WIDTH 13.6 % 10.0-14.5 [facility] PLATELET COUNT 173 K/mm3 172-450 [facility] MEAN PLATELET VOLUME 12.7 fl 9.0-13.0 [facility] pital GRAN % 60.3 % 50-80.0 [facility] IG% 0.2 % 0.0-0.2 [facility] LYMPH % 28.9 % 25.0-50.0 [facility] MONO % 7.5 % 2.0-10.0 [facility] EOS % 2.1 % 0-5.0 [facility] BASO % 1.0 % 0.0-2.0 [facility] GRAN # 3.2 K/mm3 2.0-8.00 [facility] IG# 0.0 K/mm3 0.0-0.2 [facility] LYMPH # 1.5 K/mm3 1.0-5.0 [facility] MONO # 0.4 K/mm3 0.10-1.20 [facility] EOS # 0.1 K/mm3 0.0-0.5 [facility] BASO # 0.1 K/mm3 0.0-0.2 [facility] Procedure Social History No Information Vital Signs ID Date Data Source UNK Name Value Range Interpretation Code Description Data Source(s) Body height 64 [in_i] 64 [in_i] [facility] 5'4" Body weight 238.00 [lb_av] 238.00 [lb_av] [facility] T ([facility]) Systolic blood pressure 129 mm[Hg] 129 mm[Hg] M EDENT ([facility]) Diastolic blood pressure 82 mm[Hg] 82 mm[Hg] [facility] ([facility]) Heart rate 76 /min 76 /min [facility] Body mass index (BMI) [Ratio] 40.8 kg/m2 40.8 k g/m2 [facility] ([facility]) Body weight 107.957 kg 107.957 kg [facility] ([facility]) Body temperature 95.9 [degF] 95.9 [degF] [facility] ([facility])
[2021-06-08] MEDS ORDERED: LIDOCAINE 2% 100MG/5ML SDV (FOR ANES.) As Ordered ONE (07:05)
[2021-06-08] MEDS ORDERED: propofoL 200 MG/20 ML VIAL As Ordered ONE ×2 (07:06→07:08)
--- NOTE | 2021-06-08 07:41 | ROOR ---
Patient Name: Maria Dolores Ocasio Procedure Date: 06/08/2021 7:26 AM Date of : 1950 Age: 71 Room: [facility] Gender: Female Note Status: Finalized Procedure: Upper Endoscopy + Biopsies Indications: Heartburn, Exclusion of Kearney's esophagus Providers: Memo Webster MD Referring MD: Mayuri Metzger DO Requesting Provider: Medicines: Monitored Anesthesia Care Complications: No immediate complications. Procedure: Pre-Anesthesia Assessment: - The heart rate, respiratory rate, oxygen saturations, blood pressure, adequacy of pulmonary ventilation, and response to care were monitored throughout the procedure. The Endoscope was introduced through the mouth, and advanced to the second part of duodenum. The upper GI endoscopy was accomplished without difficulty. The patient tolerated the procedure well. Findings: The Z-line was regular and was found 30 cm from the incisors. Multiple biopsies were obtained with cold forceps for evaluation to rule out Kearney's Esophagus randomly at the gastroesophageal junction. A large hiatal hernia was present. Localized mildly erythematous mucosa without bleeding was found in the gastric antrum. Biopsies were taken with a cold forceps for Helicobacter pylori testing. The exam of the duodenum was otherwise normal. Impression: - Z-line regular, 30 cm from the incisors. - Large hiatal hernia. - Erythematous mucosa in the antrum. Biopsied. - Multiple biopsies were obtained at the gastroesophageal junction. - The examination was otherwise normal. Recommendation: - Patient has a contact number available for emergencies. The signs and symptoms of potential delayed complications were discussed with the patient. Return to normal activities tomorrow. Written discharge instructions were provided to the patient. - Resume previous diet. - Discharge patient to home. - Follow an antireflux regimen. - Continue present medications. - Await pathology results. - Telephone GI clinic for pathology results in 1 week. - Return to referring physician. - Repeat upper endoscopy in 3 years for surveillance based on pathology results. - The findings and recommendations were discussed with the patient. Procedure Code(s): --- Professional --- 94892, Esophagogastroduodenoscopy, flexible, transoral; with biopsy, single or multiple Diagnosis Code(s): --- Professional --- K44.9, Diaphragmatic hernia without obstruction or gangrene K31.89, Other diseases of stomach and duodenum R12, Heartburn CPT copyright 2019 [employer]. All rights reserved. The codes documented in this report are preliminary and upon cover machine operator review may be revised to meet current compliance requirements. Memo Webster MD Memo Webster MD 06/08/2021 7:41:04 AM Electronically signed by Memo Webster MD Number of Addenda: 0 Note Initiated On: 06/08/2021 7:26 AM Estimated Blood Loss: Estimated blood loss: none.
--- NOTE | 2021-06-08 07:58 | ROOR ---
Patient Name: Maria Dolores Ocasio Procedure Date: 06/08/2021 7:29 AM Date of : 1950 Age: 71 Room: [facility] Gender: Female Note Status: Finalized Procedure: Total Colonoscopy to Cecum + Biopsy Polypectomy Indications: Screening for colorectal malignant neoplasm, Colon cancer screening in patient at increased risk: Colorectal cancer in father Providers: Memo Webster MD Referring MD: Mayuri Metzger DO Requesting Provider: Medicines: Monitored Anesthesia Care Complications: No immediate complications. Procedure: Pre-Anesthesia Assessment: - The heart rate, respiratory rate, oxygen saturations, blood pressure, adequacy of pulmonary ventilation, and response to care were monitored throughout the procedure. - The heart rate, respiratory rate, oxygen saturations, blood pressure, adequacy of pulmonary ventilation, and response to care were monitored throughout the procedure. The Colonoscope was introduced through the anus and advanced to the cecum, identified by appendiceal orifice and ileocecal valve. The colonoscopy was performed without difficulty. The patient tolerated the procedure well. The quality of the bowel preparation was excellent. Findings: The perianal and digital rectal examinations were normal. Non-bleeding internal hemorrhoids were found during retroflexion. The hemorrhoids were small and Grade I (internal hemorrhoids that do not prolapse). A small polyp was found in the transverse colon. The polyp was sessile. The polyp was removed with a jumbo cold forceps. Resection and retrieval were complete. The exam was otherwise without abnormality on direct and retroflexion views. Impression: - Non-bleeding internal hemorrhoids. - One small polyp in the transverse colon, removed with a jumbo cold forceps. Resected and retrieved. - The examination was otherwise normal on direct and retroflexion views. - The exam was otherwise normal to the cecum. Recommendation: - Patient has a contact number available for emergencies. The signs and symptoms of potential delayed complications were discussed with the patient. Return to normal activities tomorrow. Written discharge instructions were provided to the patient. - High fiber diet. - Discharge patient to home. - Continue present medications. - Await pathology results. - Telephone GI clinic for pathology results in 1 week. - Repeat colonoscopy in 5 years for surveillance based on pathology results. - Return to referring physician. - The findings and recommendations were discussed with the patient. Procedure Code(s): --- Professional --- 29534, Colonoscopy, flexible; with biopsy, single or multiple Diagnosis Code(s): --- Professional --- Z12.11, Encounter for screening for malignant neoplasm of colon Z80.0, Family history of malignant neoplasm of digestive organs K64.0, First degree hemorrhoids K63.5, Polyp of colon CPT copyright 2019 [employer]. All rights reserved. The codes documented in this report are preliminary and upon process control board operator review may be revised to meet current compliance requirements. Memo Webster MD Memo Webster MD 06/08/2021 7:57:50 AM Electronically signed by Memo Webster MD Number of Addenda: 0 Note Initiated On: 06/08/2021 7:29 AM Estimated Blood Loss: Estimated blood loss: none.
[2021-06-08 08:20] VITALS: BP 169/73
== END 2021-06-08 08:50 | disposition home or self-care (01) ==
LOC: M OPP 06:42
PROVIDERS: ATTEND Internal Medicine Gastroenterology
DX: Z12.11 Encounter for screening for malignant neoplasm of colon (principal); Z80.0 Family history of malignant neoplasm of digestive organs; K63.5 Polyp of colon; K64.0 First degree hemorrhoids; K44.9 Diaphragmatic hernia without obstruction or gangrene; K31.89 Other diseases of stomach and duodenum; R12 Heartburn; N26.1 Atrophy of kidney (terminal); Z79.899 Other long term (current) drug therapy

== ENCOUNTER → 2022-02-01 | Outpatient (REF) | payer MEDICARE ==
[~2022-02-01] MED LIST changes: -D31000TA2 PO; -NS 1,000 ML IV ONE; +OMEP-173 PO; -OMEP-218 PO; +VITA100093 PO
== END ==
LOC: M LAB REF 16:32
PROVIDERS: ATTEND Ophthalmology
DX: C44.1192 Basal cell carcinoma of skin of left lower eyelid, including canthus (principal)

== ENCOUNTER → 2022-03-27 | Outpatient (CLI) | payer MEDICARE ==
[~2022-03-27] MED LIST changes: +IBUP200C28 PO
== END ==
LOC: M LABSMTC 11:22
PROVIDERS: ATTEND Anesthesiology
DX: Z01.812 Encounter for preprocedural laboratory examination (principal); Z20.822 Contact with and (suspected) exposure to COVID-19

== ENCOUNTER 2022-03-29 12:29 | Day surgery (SDC) | payer MEDICARE ==
[~2022-03-29] VITALS: Ht 162.6 cm; Wt 105.6 kg
[~2022-03-29 12:29] MED LIST changes: +LIDOCAINE 3.5 % 1ML OPHTH TOPICAL GEL OU ONE
[2022-03-29] MEDS ORDERED: TOBRADEX OPHTH OINT 3.5 GM As Ordered ONE (13:13)
[2022-03-29] MEDS ORDERED: LIDOCAINE 2% W/EPINEPHRINE 20ML VIAL **PRES FREE As Ordered ONE (13:24)
[2022-03-29] MEDS ORDERED: fentaNYL 100 MCG/2 ML INJECTION As Ordered ONE (13:29)
[2022-03-29] MEDS ORDERED: MIDAZOLAM INJ 2MG/2ML VIAL (J2250 PER 1MG) As Ordered ONE (13:29)
[2022-03-29] MEDS ORDERED: POVIDONE-IODINE 5% OPHTH PREP SOL 30ML As Ordered ONE (14:21)
[2022-03-29] MEDS ORDERED: ACETAMINOPHEN 325 MG TAB PO PRN (16:00)
[2022-03-29 16:30] VITALS: BP 144/86
== END 2022-03-29 16:33 | disposition home or self-care (01) ==
LOC: M SDC 12:29
PROVIDERS: ATTEND Ophthalmology
DX: C44.1192 Basal cell carcinoma of skin of left lower eyelid, including canthus (principal); H16.223 Keratoconjunctivitis sicca, not specified as Sjogren's, bilateral; I10 Essential (primary) hypertension; E78.5 Hyperlipidemia, unspecified; K44.9 Diaphragmatic hernia without obstruction or gangrene; K21.9 Gastro-esophageal reflux disease without esophagitis; D64.9 Anemia, unspecified; Z79.899 Other long term (current) drug therapy
CPT/HCPCS: 11641; 88305; 88331; J2250; J3010

== ENCOUNTER 2023-05-23 11:08 | Day surgery (SDC) | payer MEDICARE ==
[~2023-05-23] VITALS: Ht 162.6 cm; Wt 107.0 kg
[~2023-05-23 11:08] MED LIST changes: +LIDOCAINE 2% W/EPINEPHRINE 20ML VIAL **PRES FREE As Ordered ONE; +POVIDONE-IODINE 5% OPHTH PREP SOL 30ML As Ordered ONE; +TOBRADEX OPHTH OINT 3.5 GM As Ordered ONE
[2023-05-23] MEDS ORDERED: MIDAZOLAM INJ 2MG/2ML VIAL As Ordered ONE (11:56)
[2023-05-23] MEDS ORDERED: fentaNYL 100 MCG/2 ML INJECTION As Ordered ONE (11:57)
[2023-05-23 13:56] VITALS: BP 136/72; TEMP 97.6; O2SAT 97
[2023-05-23] MEDS ORDERED: CIPROFLOXACIN 0.3% OPHTH OINTMENT As Ordered ONE (14:15)
== END 2023-05-23 14:21 | disposition home or self-care (01) ==
LOC: M SDC 11:08
PROVIDERS: ATTEND Ophthalmology
DX: C44.1192 Basal cell carcinoma of skin of left lower eyelid, including canthus (principal); I10 Essential (primary) hypertension; K44.9 Diaphragmatic hernia without obstruction or gangrene; K21.9 Gastro-esophageal reflux disease without esophagitis; D64.9 Anemia, unspecified; Z79.899 Other long term (current) drug therapy
CPT/HCPCS: 11642; 15120; 88305; 88331; J2250; J3010